=== PATIENT | female | born 1940 | race Caucasian/White ===

== ENCOUNTER 2017-02-06 07:28 | Outpatient (CLI) | payer MEDICARE, OTHER ==
[2017-02-06 08:20] LABS: ALBUMIN/GLOBULIN RATIO 1.2 (1.0-2.2); BILIRUBIN,TOTAL 0.4 mg/dL (0.2-1.0); BUN - BLOOD UREA NITROGEN 22 mg/dL (6-20); CALCIUM 9.1 mg/dL (8.5-10.3); CARBON DIOXIDE - CO2 22 mmol/L (21-32); CHLORIDE 109 mmol/L (101-111); CHOL/HDL RATIO 4.5 (<4.4); CHOLESTEROL 267 mg/dL; CREATININE 0.9 mg/dL (0.4-1.0); GFR - MDRD 61 (>89); GLUCOSE 104 mg/dL (70-100); HDL CHOLESTEROL 59 mg/dL; LDL/HDL RATIO 2.8 (<4.4); POTASSIUM 4.1 mmol/L (3.5-5.0); SODIUM 139 mmol/L (135-145); TOTAL PROTEIN 6.5 g/dL (6.7-8.2); TRIGLYCERIDES 199 mg/dL; VLDL CHOLESTEROL 40 mg/dL
== END 2017-02-06 07:29 | disposition home or self-care (01) ==
LOC: LAB 07:28
PROVIDERS: ATTEND Physician Assistant Medical
DX: E78.2 Mixed hyperlipidemia (principal); M81.0 Age-related osteoporosis without current pathological fracture; Z79.899 Other long term (current) drug therapy; R73.9 Hyperglycemia, unspecified
CPT/HCPCS: 36415; 80053; 80061; 82306; 84443

== ENCOUNTER 2017-02-14 10:50 | Outpatient (CLI) | payer MEDICARE, OTHER ==
[2017-02-14 11:15] LABS: BASOPHILS % (AUTO) 0.3 %; EOSINOPHILS % (AUTO) 0.2 %; HCT - HEMATOCRIT 37.8 % (37.0-47.0); HGB - HEMOGLOBIN 12.5 g/dL (12.0-16.0); LYMPHOCYTES # (AUTO) 1.1 10^3/uL (1.5-3.5); LYMPHOCYTES % (AUTO) 7.4 %; MEAN CORPUSCULAR HEMOGLOBIN 28.5 pg (27.0-31.0); MEAN CORPUSCULAR HGB CONC 33.1 g/dL (32.0-36.0); MEAN CORPUSCULAR VOLUME 86.4 fL (81.0-99.0); MEAN PLATELET VOLUME 7.7 fL (7.9-10.8); MONOCYTES # (AUTO) 0.8 10^3/uL (0.0-1.0); MONOCYTES % (AUTO) 5.6 %; NEUTROPHILS # (AUTO) 12.6 10^3/uL (1.5-6.6); NEUTROPHILS % (AUTO) 86.5 %; RED BLOOD COUNT 4.38 10^6/uL (4.20-5.40); RED CELL DISTRIBUTION WIDTH 13.6 % (12.0-15.0); UNCORRECTED WHITE BLOOD COUNT 14.6 x10^3/uL; WHITE BLOOD COUNT 14.6 x10^3/uL (4.8-10.8)
[2017-02-14 11:35] LABS: ALBUMIN/GLOBULIN RATIO 1.2 (1.0-2.2); BILIRUBIN,TOTAL 0.9 mg/dL (0.2-1.0); CALCIUM 9.2 mg/dL (8.5-10.3); CREATININE 0.8 mg/dL (0.4-1.0); POTASSIUM 4.1 mmol/L (3.5-5.0); TOTAL PROTEIN 6.9 g/dL (6.7-8.2)
== END 2017-02-14 10:51 | disposition home or self-care (01) ==
LOC: LAB 10:50
PROVIDERS: ATTEND Physician Assistant Medical
DX: R10.84 Generalized abdominal pain (principal); R19.7 Diarrhea, unspecified; R50.9 Fever, unspecified
CPT/HCPCS: 36415; 80053; 82150; 83690; 85025; 85651; 86140

== ENCOUNTER 2017-02-14 12:15 | Outpatient (CLI) | payer MEDICARE, OTHER ==
[2017-02-14] MEDS ORDERED: IOPAMIDOL-300 50 ML VIAL PO ONE (13:55)
[2017-02-14] MEDS ORDERED: IOPAMIDOL-300 100 ML VIAL IVP ONE (13:55)
--- NOTE | 2017-02-14 15:51 | CT Report ---
CT OF THE ABDOMEN AND PELVIS WITH CONTRAST: 02/14/2017 CLINICAL INDICATION: Pain, fever. TECHNIQUE: Axial CT images of the abdomen and pelvis were obtained with 100 mL of Isovue-300 intraven ously as well as oral contrast. COMPARISON: 05/05/2015. FINDINGS: Limited evaluation of the lung bases demonstrates mild atelectasis. ABDOMEN: The liver demonstrates fatty infiltration. The previously noted prominence of the pancreatic duct has resolved. The kidneys, spleen, and adrenal glands appear unremarkable. The patient is statu s post cholecystectomy. There is wall thickening and inflammation involving the distal transverse col on, compatible with colitis. No small bowel dilatation, free gas, or free fluid is present. No abdomi nal adenopathy is seen. PELVIS: Sigmoid diverticulosis is present, without CT evidence of diverticulitis. No pelvic adenopath y or free fluid is present. The osseous structures demonstrate degenerative changes. IMPRESSION: COLITIS OF THE DISTAL TRANSVERSE COLON, WITHOUT EVIDENCE OF PERFORATION. Results called to Jane Webb PA-C, on 02/14/2017 at [address]15 hours. In accordance with CT protocol optimization, one or more of the following dose reduction techniques w ere utilized for this exam: automated exposure control, adjustment of mA and/or KV based on patient size, or use of iterative reconstructive technique. JOB #: [id number] EXT JOB #:[id number]
== END 2017-02-14 12:16 | disposition home or self-care (01) ==
LOC: DI 12:15
PROVIDERS: ATTEND Physician Assistant Medical
DX: K52.9 Noninfective gastroenteritis and colitis, unspecified (principal)
CPT/HCPCS: 74177; Q9967; 36415; 80053; 82150; 83690; 85025; 85651; 86140

== ENCOUNTER 2017-02-18 10:15 | Outpatient (CLI) | payer MEDICARE, OTHER ==
[2017-02-18 12:06] LABS: THYROID STIMULATING HORMONE 3.97 uIU/mL (0.34-5.60)
== END 2017-02-18 10:16 | disposition home or self-care (01) ==
LOC: LAB 10:15
PROVIDERS: ATTEND Physician Assistant Medical
DX: R94.6 Abnormal results of thyroid function studies (principal)
CPT/HCPCS: 36415; 84439; 84443

== ENCOUNTER 2017-02-19 04:15 | Outpatient (CLI) | payer MEDICARE, OTHER | END 2017-02-19 04:16 | disposition home or self-care (01) | LOC: LAB.R 04:15 | PROVIDERS: ATTEND Physician Assistant Medical | DX: R30.0 Dysuria (principal); R82.5 Elevated urine levels of drugs, medicaments and biological substances; N39.0 Urinary tract infection, site not specified | CPT/HCPCS: 87086 ==

== ENCOUNTER 2017-05-17 09:32 | Day surgery (SDC) | payer MEDICARE, OTHER ==
[2017-05-17] MEDS ORDERED: LACTATED RINGERS 1,000 ML IV ONE (09:53)
[2017-05-17] MEDS ORDERED: fentaNYL 100 MCG/2 ML VIAL IVP ONE (12:05)
[2017-05-17] MEDS ORDERED: GLUCAGON 1 MG/ML VIAL IM ONE (12:05)
[2017-05-17] MEDS ORDERED: MIDAZOLAM 2 MG/2 ML VIAL IVP ONE (12:05)
[2017-05-17 12:30] VITALS: BP 119/64
== END 2017-05-17 09:33 | disposition home or self-care (01) ==
LOC: SDS 09:32
PROVIDERS: ATTEND Surgery
PROC: 0DBE8ZX Excision of Large Intestine, Via Natural or Artificial Opening Endoscopic, Diagnostic (ICD-10-PCS; principal; 2017-05-17 10:30)
DX: K52.9 Noninfective gastroenteritis and colitis, unspecified (principal); R19.4 Change in bowel habit
CPT/HCPCS: 45380; 88305; J7120

== ENCOUNTER 2018-02-10 09:12 | Outpatient (CLI) | payer MEDICARE, OTHER ==
[2018-02-10 09:39] LABS: BASOPHILS # (AUTO) 0.1 10^3/uL (0.0-0.1); EOSINOPHILS # (AUTO) 0.1 10^3/uL (0.0-0.7); EOSINOPHILS % (AUTO) 1.3 %; HGB - HEMOGLOBIN 13.3 g/dL (12.0-16.0); LYMPHOCYTES # (AUTO) 1.3 10^3/uL (1.5-3.5); LYMPHOCYTES % (AUTO) 20.3 %; MEAN CORPUSCULAR HEMOGLOBIN 29.1 pg (27.0-31.0); MEAN CORPUSCULAR HGB CONC 32.7 g/dL (32.0-36.0); MEAN CORPUSCULAR VOLUME 89.1 fL (81.0-99.0); MEAN PLATELET VOLUME 7.9 fL (7.9-10.8); MONOCYTES # (AUTO) 0.6 10^3/uL (0.0-1.0); MONOCYTES % (AUTO) 8.7 %; NEUTROPHILS # (AUTO) 4.5 10^3/uL (1.5-6.6); NEUTROPHILS % (AUTO) 68.7 %; PLT - PLATELET COUNT 241 10^3/uL (130-450); RED BLOOD COUNT 4.58 10^6/uL (4.20-5.40); RED CELL DISTRIBUTION WIDTH 13.6 % (12.0-15.0); WHITE BLOOD COUNT 6.5 x10^3/uL (4.8-10.8)
[2018-02-10 09:56] LABS: ALBUMIN 3.6 g/dL (3.2-5.5); ALBUMIN/GLOBULIN RATIO 1.1 (1.0-2.2); ALKALINE PHOSPHATASE 68 IU/L (42-121); ALT ALANINE AMINOTRANSFERASE 20 IU/L (10-60); AST ASPARTATE AMINOTRANSFERASE 22 IU/L (10-42); BILIRUBIN,TOTAL 0.7 mg/dL (0.2-1.0); BUN - BLOOD UREA NITROGEN 20 mg/dL (6-20); CALCIUM 9.2 mg/dL (8.5-10.3); CARBON DIOXIDE - CO2 26 mmol/L (21-32); CHLORIDE 105 mmol/L (101-111); CHOL/HDL RATIO 4.1 (<4.4); CHOLESTEROL 274 mg/dL; CREATININE 0.8 mg/dL (0.4-1.0); GFR - MDRD 70 (>89); GLUCOSE 101 mg/dL (70-100); HDL CHOLESTEROL 67 mg/dL; LDL CHOLESTEROL,CALCULATED 170 mg/dL; LDL/HDL RATIO 2.5 (<4.4); SODIUM 139 mmol/L (135-145); TOTAL PROTEIN 6.9 g/dL (6.7-8.2); VLDL CHOLESTEROL 37 mg/dL
[2018-02-10 10:20] LABS: HB2 TOTAL 14.8 g/dL; HEMOGLOBIN A1C 0.63 g/dL
== END 2018-02-10 09:13 | disposition home or self-care (01) ==
LOC: LAB 09:12
PROVIDERS: ATTEND Physician Assistant Medical
DX: M81.0 Age-related osteoporosis without current pathological fracture (principal); Z79.899 Other long term (current) drug therapy; R73.9 Hyperglycemia, unspecified; E78.2 Mixed hyperlipidemia; R94.6 Abnormal results of thyroid function studies
CPT/HCPCS: 36415; 80053; 80061; 82306; 83036; 83721; 84443; 85025

== ENCOUNTER 2018-02-19 13:20 | Outpatient (CLI) | payer MEDICARE, OTHER ==
[2018-02-19 16:56] LABS: BILIRUBIN,URINE NEGATIVE (NEGATIVE); GLUCOSE, URINE (UA) NEGATIVE (NEGATIVE); KETONES,URINE (UA) NEGATIVE (NEGATIVE); LEUKOCYTE ESTERASE, URINE NEGATIVE (NEGATIVE); NITRITE,URINE NEGATIVE (NEGATIVE); OCCULT BLOOD,URINE TRACE-LYSE (NEGATIVE); PROTEIN,URINE NEGATIVE (NEGATIVE); UROBILINOGEN,URINE 0.2 (NORMAL) E.U./dL (NORMAL)
[2018-02-19 17:35] LABS: CLARITY,URINE CLEAR (CLEAR)
== END 2018-02-19 13:21 | disposition home or self-care (01) ==
LOC: LAB.R 13:20
PROVIDERS: ATTEND Physician Assistant Medical
DX: R31.9 Hematuria, unspecified (principal)
CPT/HCPCS: 81001; 81003; 87086

== ENCOUNTER 2018-02-26 15:17 | Outpatient (CLI) | payer MEDICARE, OTHER ==
--- NOTE | 2018-03-06 10:32 | DEXA Report ---
Procedure Date: 02/26/2018 Accession Number: [id number] / [id number] Procedure: DEX - Dexa Spine and/or Hip CPT Code: FULL RESULT: EXAM: Dexa Spine and/or Hip DATE: 02/26/2018 3:55 PM CLINICAL HISTORY: MEDICATION USE, OSTEOPOROSIS TECHNIQUE: Dual energy x-ray absorptiometry (DXA) was performed on a Resource Interactive System. Regions measured are the AP Spine, femoral neck, and if needed forearm. COMPARISON: 03/12/2016 In accordance with the International Society for Clinical Densitometry (ISCD) guidelines, data from previous exams may be reanalyzed using current recommendations and techniques. This is done to allow a more accurate basis for comparison with the current study. FINDINGS: The data for the lumbar spine is as follows: BMD (g/cm/cm) T-SCORE Z-SCORE REGION L1 0.928 -1.7 -0.2 L2 0.843 -3.0 -1.5 L3 0.877 -2.7 -1.2 L4 0.951 -2.1 -0.6 TOTAL 0.902 -2.3 -0.9 NOTE: All evaluable vertebrae are used for classification The data for the hip is as follows: BMD (g/cm/cm) T-SCORE Z-SCORE REGION Neck 0.874 -1.2 0.6 TOTAL 0.846 -1.3 0.3 NOTE: The femoral neck or total proximal femur, whichever is lowest, is used for classification. DXA RESULTS SUMMARY: Spine SCAN DATE AGE BMD BMD CHANGE BMD CHANGE VS BASELINE PREVIOUS [age][birth year][age] 0.902 -0.031* -3.3* 03/12/2016 [age] 0[age]933 -- -- * Denotes significant change at the 95% confidence level. Denotes dissimilar scan types or analysis methods. DXA RESULTS SUMMARY: Hip SCAN DATE [age]GE BMD BMD CHANGE BMD CHANGE VS BASELINE PREVIOUS 02[age]26/2018 [age] 0.846 0.005 0.6 03/12/2016 75.5 0.841 -- -- * Denotes significant change at the 95% confidence level. Denotes dissimilar scan types or analysis methods. IMPRESSION: THE WHO CLASSIFICATION BASED ON THE INTERNATIONAL REFERENCE STANDARD IS OSTEOPENIA. THE FRACTURE RISK IS INCREASED There has been statistically significant interval decrease in bone mineral density of the lumbar spine from 03/12/2016. No statistically significant interval change in bone mineral density of the left hip in the interval. RECOMMENDATION: Patients with diagnosis of osteoporosis or osteopenia should have regular bone mineral density assessment. For those eligible for Medicare, routine testing is allowed once every 2 years. Testing frequency can be increased for patients who have rapidly progressing disease or for those who are receiving medical therapy to restore bone mass. COMMENT: World Health Organization (WHO) definitions for osteoporosis and osteopenia: NORMAL BMD: T-score at -1.0 or higher, fracture risk is low OSTEOPENIA BMD: T-score between -1.0 and -2.5, fracture risk is increased. OSTEOPOROSIS BMD: T-score at -2.5 or lower, fracture risk is high. National Osteoporosis Foundation recommends: 1. Obtain adequate dietary calcium (at least 1200 mg per day) and vitamin D (400-800 international units per day). 2. Participate, as appropriate, in regular weightbearing and muscle-strengthening exercise. 3. Avoid tobacco use and reduce alcohol and caffeine intake. 4. For more detailed information see the website at www.NOF.org.
== END 2018-02-26 15:18 | disposition home or self-care (01) ==
LOC: DI 15:17
PROVIDERS: ATTEND Physician Assistant Medical
DX: M85.89 Other specified disorders of bone density and structure, multiple sites (principal); Z79.899 Other long term (current) drug therapy
CPT/HCPCS: 77080

== ENCOUNTER 2018-02-26 15:19 | Outpatient (CLI) | payer MEDICARE, OTHER ==
--- NOTE | 2018-02-27 09:53 | Mammography Report ---
Procedure Date: 02/26/2018 Accession Number: [id number] / [id number] Procedure: ANA LUISA - Screening Mammo Dig Bilat CPT Code: FULL RESULT: EXAM: Screening Mammo Dig Bilat DATE: 02/26/2018 3:57 PM CLINICAL HISTORY: 77-year-old with family history of breast cancer, history of benign right breast biopsy, nulliparous patient for screening TECHNIQUE: Bilateral CC and MLO views were obtained. COMPARISON: 03/12/2016, 04/13/2014, 04/08/2013 FINDINGS: The breasts demonstrate heterogeneously dense fibroglandular parenchyma bilaterally. Postbiopsy changes in the right breast are stable. Coarse and punctate, typically benign calcifications are present. No suspicious masses, clustered microcalcifications, or regions of architectural distortion are identified. IMPRESSION: Benign findings RECOMMENDATION: Routine annual screening unless otherwise clinically indicated. BIRADS CATEGORY 2: Benign findings STANDARD QUALIFYING STATEMENTS: 1. This examination was reviewed with the aid of Computer-Aided Detection (CAD). 2. A negative or benign imaging report should not delay biopsy if clinically suspicious findings are present. Consider surgical consultation if warrented. More than 5% of cancers are not identified by imaging. 3. Dense breasts may obscure an underlying neoplasm.
== END 2018-02-26 15:20 | disposition home or self-care (01) ==
LOC: DI 15:19
PROVIDERS: ATTEND Physician Assistant Medical
DX: Z12.31 Encounter for screening mammogram for malignant neoplasm of breast (principal); Z80.3 Family history of malignant neoplasm of breast
CPT/HCPCS: 77067

== ENCOUNTER 2018-08-30 10:05 | Emergency (ER) | payer MEDICARE, OTHER ==
[2018-08-30] MEDS ORDERED: PROPARACAINE 0.5% OPHTH DROPS 15 ML LEFTEYE STA (10:40)
--- NOTE | 2018-08-30 10:43 | ED Physician Documentation ---
PD HPI OPHTHO - Stated complaint Stated Complaint: EYE REDNESS - Chief complaint Chief Complaint: Heent - History obtained from History obtained from: Patient - History of Present Illness Timing - onset: Yesterday Timing - details: Abrupt onset, Still present Pain level max: 0 Pain level now: 0 Location: Left Associated symptoms: Redness, Swelling. No: Tearing, Discharge, FB sensation, Photophobia, Double vision, Decreased vision, Loss of vision, Headache Contributing factors: Wears glasses. No: Exposed to conjunctivitis, Recent URI, FB, UV light (welding etc), Chemical exposure, acid, Chemical exposure, base, Blunt trauma, Penetrating trauma, Irrigated [employer], Wears contacts, Work related Similar symptoms before: Has not had sx before - Additional information Additional information: 78-year-old female who wears eyeglasses here with complain of left eye redness and swelling of her lower eyelid yesterday. Patient states able to read with her eyeglasses. Patient denies any trauma, injury or exposure to chemicals and environment yesterday. Denies any fever or upper respiratory infection. Denies any new makeup, soap, lotion. Review of Systems Ten Systems: 10 systems reviewed and negative Constitutional: denies: Fever, Chills, Myalgias Eyes: reports: Irritation. 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 HEENT: Tonsil/Adenoidectomy - Present Medications Home Medications: Ambulatory Orders Medication Instructions Recorded Confirmed Aspirin 81 mg PO DAILY 09/05/14 05/16/17 Calcium Carbonate [Calcium] 750 mg PO DAILY 09/05/14 05/16/17 Raloxifene [Evista] 60 mg PO DAILY 09/05/14 05/16/17 Zolpidem [Ambien] 3.3 mg PO DAILY 09/05/14 05/16/17 Cholecalciferol (Vitamin D3) 2,000 units PO DAILY 02/28/16 05/16/17 [Vitamin D3] Polymyxin B/Trimeth Ophth Drop 1 drops EACHEYE Q3H 7 Days #1 08/30/18 [Polytrim Ophth Drops] bottle - Allergies Allergies/Adverse Reactions: Allergies Allergy/AdvReac Type Severity Reaction Status Date / Time erythromycin base Allergy Anaphylaxis Verified 09/05/14 18:18 Penicillins Allergy Unknown Verified 09/05/14 18:16 promethazine HCl * Allergy Anxiety Verified 09/05/14 18:18 [From Phenergan] venom-honey bee Allergy Anaphylaxis Verified 02/28/16 12:32 [bee venom (honey bee)] - Social History Does the pt smoke?: No Smoking Status: Never smoker Does the pt drink ETOH?: No Does the pt have substance abuse?: Yes - Immunizations Immunizations are current?: Yes PD ED PE NORMAL - Vitals Vital signs reviewed: Yes - General General: Alert and oriented X 3, No acute distress, Well developed/nourished - HEENT HEENT: Atraumatic, PERRL, EOMI, Ears normal, Moist mucous membranes, Pharynx be nign, Other (Left eye with mild erythema of the conjunctiva. Left lower eyelid with edema.Funduscopic exam no papilledema no cloudiness nor redness) - Neck Neck: Supple, no meningeal sign - Cardiac Cardiac: RRR, No murmur - Respiratory Respiratory: Clear bilaterally - Abdomen Abdomen: Normal bowel sounds, Soft, Non tender, Non distended - Derm Derm: Normal color, Warm and dry - Extremities Extremities: No deformity - Neuro Neuro: Alert and oriented X 3, No motor deficit, No sensory deficit, Normal speech - Psych Psych: Normal mood, Normal affect Results - Vitals Vitals: Vital Signs - 24 hr 08/30/18 10:14 Temperature 36.6 C Heart Rate 88 Respiratory 16 Rate Blood Pressure 122/74 O2 Saturation 99 Oxygen O2 Source Room air PD MEDICAL DECISION MAKING - ED course Complexity details: re-evaluated patient, considered differential (Conjunctivitis, corneal abrasion), d/w patient ED course: 1110 patient stated the only thing that was different that she did yesterday was she was wearing her readers for reading yesterday when she started feeling the left eye discomfort, redness and swelling. Procedure: Applied a drop of proparacaine on the left eye. Fluorescein test done. Corneal abrasion noted at 3:00. Patient tolerated procedure. 1129 patient showed me her list of allergies which is erythromycin. We will discharged on eyedrops. Patient will follow up with her eye doctor on Saturday as it is a holiday weekend. If worse she will return to the emergency room. Departure - Departure Disposition: Home, Self Care Clinical Impression: Conjunctivitis Qualifiers: Conjunctivitis type: acute Acute conjunctivitis type: unspecified Laterality: left Qualified Code(s): H10.32 - Unspecified acute conjunctivitis, left eye Corneal abrasion, left Qualifiers: Encounter type: initial encounter Qualified Code(s): S05.02XA - Injury of conjunctiva and corneal abrasion without foreign body, left eye, initial encounter Condition: Stable Instructions: ED Abrasion Corneal Ch, ED Conjunctivitis Nonspecific Prescriptions: Polymyxin B/Trimeth Ophth Drop [Polytrim Ophth Drops] 1 drops EACHEYE Q3H 7 Days #1 bottle Comments: Use the Polytrim eyedrop antibiotic on your left eye as prescribed. Call your eye doctor as soon as possible for appointment this week. If worse return to the emergency room.
[2018-08-30 11:31] VITALS: BP 148/87
== END 2018-08-30 11:41 | disposition home or self-care (01) ==
LOC: ED 10:05
DX: H10.32 Unspecified acute conjunctivitis, left eye (principal); S05.02XA Injury of conjunctiva and corneal abrasion without foreign body, left eye, initial encounter; X58.XXXA Exposure to other specified factors, initial encounter; Z79.82 Long term (current) use of aspirin
CPT/HCPCS: 99283; J3490

== ENCOUNTER 2018-09-12 09:14 | Outpatient (CLI) | payer MEDICARE, OTHER ==
[2018-09-12 10:27] LABS: CHOL/HDL RATIO 4.9 (<4.4); CHOLESTEROL 284 mg/dL; HDL CHOLESTEROL 58 mg/dL; LDL CHOLESTEROL,CALCULATED 178 mg/dL; LDL/HDL RATIO 3.1 (<4.4); VLDL CHOLESTEROL 48 mg/dL
== END 2018-09-12 09:15 | disposition home or self-care (01) ==
LOC: LAB 09:14
PROVIDERS: ATTEND Physician Assistant Medical
DX: E78.2 Mixed hyperlipidemia (principal); Z79.899 Other long term (current) drug therapy
CPT/HCPCS: 36415; 80061; 83721

== ENCOUNTER 2018-09-29 11:50 | Inpatient (IN) | payer MEDICARE, OTHER ==
[2018-09-29 12:38] LABS: BASOPHILS # (AUTO) 0.1 10^3/uL (0.0-0.1); BASOPHILS % (AUTO) 1.3 %; EOSINOPHILS % (AUTO) 0.4 %; HGB - HEMOGLOBIN 13.6 g/dL (12.0-16.0); LYMPHOCYTES % (AUTO) 11.6 %; MEAN CORPUSCULAR HEMOGLOBIN 29.2 pg (27.0-31.0); MEAN CORPUSCULAR HGB CONC 33.6 g/dL (32.0-36.0); MEAN CORPUSCULAR VOLUME 86.8 fL (81.0-99.0); MEAN PLATELET VOLUME 8.3 fL (7.9-10.8); MONOCYTES # (AUTO) 0.6 10^3/uL (0.0-1.0); MONOCYTES % (AUTO) 6.8 %; NEUTROPHILS # (AUTO) 7.2 10^3/uL (1.5-6.6); NEUTROPHILS % (AUTO) 79.9 %; PLT - PLATELET COUNT 197 10^3/uL (130-450); RED BLOOD COUNT 4.66 10^6/uL (4.20-5.40); RED CELL DISTRIBUTION WIDTH 14.5 % (12.0-15.0)
--- NOTE | 2018-09-29 12:54 | ED Physician Documentation ---
PD HPI DYSPNEA - Stated complaint Stated Complaint: DIFFICULTY BREATHING - Chief complaint Chief Complaint: Resp - History obtained from History obtained from: Patient - History of Present Illness Timing - onset: How many days ago (2) Timing - duration: Days (2) Timing - details: Abrupt onset, Still present Inciting event(s): Other (had finger surgery 2 weeks ago, without sedentary state and no infection.). No: URI, Immobilization/travel Worsened by: Exertion (just walking to bathroom and back.) Associated symptoms: No: Fever, Cough, Hemoptysis, Wheezing, Chest pain / discomfort, Palpitations, Bilateral edema Similar symptoms before: Diagnosis (PEs after a surgery 25 years ago. No recent problems.) Recently seen: Surgery (finger cyst removed 2 weeks ago) Review of Systems Constitutional: denies: Fever, Chills Nose: denies: Rhinorrhea / runny nose, Congestion Throat: denies: Sore throat Respiratory: denies: Cough GI: denies: Nausea, Vomiting, Diarrhea Skin: denies: Rash, Lesions Neurologic: reports: Generalized weakness, Near syncope. 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 HEENT: Tonsil/Adenoidectomy - Present Medications Home Medications: Ambulatory Orders Medication Instructions Recorded Confirmed Aspirin 81 mg PO DAILY 09/05/14 09/29/18 Zolpidem [Ambien] 5 mg PO QPM PRN 09/05/14 09/29/18 Cholecalciferol (Vitamin D3) 5,000 units PO DAILY 02/28/16 09/29/18 [Vitamin D3] Calcium - Elemental 1,000 mg PO DAILY 09/29/18 09/29/18 Raloxifene HCl 60 mg PO DAILY 09/29/18 09/29/18 - Allergies Allergies/Adverse Reactions: Allergies Allergy/AdvReac Type Severity Reaction Status Date / Time erythromycin base Allergy Anaphylaxis Verified 09/29/18 15:29 Penicillins Allergy Unknown Verified 09/29/18 16:07 promethazine HCl * Allergy Anxiety Verified 09/29/18 16:07 [From Phenergan] venom-honey bee Allergy Anaphylaxis Verified 09/29/18 15:29 [bee venom (honey bee)] - Social History Does the pt smoke?: No Smoking Status: Never smoker Does the pt drink ETOH?: No Does the pt have substance abuse?: Yes - Immunizations Immunizations are current?: Yes PD ED PE NORMAL - Vitals Vital signs reviewed: Yes - General General: Alert and oriented X 3, No acute distress, Well developed/nourished - HEENT HEENT: Pharynx benign - Neck Neck: Supple, no meningeal sign, No adenopathy - Cardiac Cardiac: RRR, No murmur - Respiratory Respiratory: Clear bilaterally - Abdomen Abdomen: Normal bowel sounds, Soft, Non tender - Back Back: No CVA TTP - Derm Derm: Normal color, Warm and dry - Extremities Extremities: No tenderness to palpate, Normal ROM s pain, No edema, No calf tenderness / cord - Neuro Neuro: Alert and oriented X 3, No motor deficit, Normal speech Results - Vitals Vitals: Vital Signs - 24 hr 09/29/18 09/29/18 09/29/18 11:52 12:09 12:30 Temperature 36.1 C L Heart Rate 104 H 100 99 Respiratory 26 H 12 22 Rate Blood Pressure 150/91 H 147/87 H 128/70 O2 Saturation 95 94 94 09/29/18 09/29/18 09/29/18 13:00 13:24 13:30 Temperature Heart Rate 98 95 95 Respiratory 16 15 16 Rate Blood Pressure 144/88 H 130/77 O2 Saturation 92 99 09/29/18 09/29/18 09/29/18 14:08 15:11 15:26 Temperature Heart Rate 95 86 101 H Respiratory 20 18 22 Rate Blood Pressure 156/73 H 154/87 H 161/79 H O2 Saturation 95 92 92 Oxygen O2 Source Room air - EKG (time done) 12:03 Rate: Rate (enter#) (102) Rhythm: Sinus tachycardia Drake: Normal Intervals: Normal OK QRS: Normal Ischemia: Normal ST segments. No: ST elevation c/w ischemia, ST depression Computer interpretation: Agree with computer - Labs Labs: Laboratory Tests 09/29/18 09/29/18 09/29/18 12:24 12:24 12:24 WBC 9.0 RBC 4.66 Hgb 13.6 Hct 40.5 MCV 86.8 MCH 29.2 MCHC 33.6 RDW 14.5 Plt Count 197 MPV 8.3 Neut # (Auto) 7.2 H Lymph # (Auto) 1.0 L [place] # (Auto) 0.6 Eos # (Auto) 0.0 Baso # (Auto) 0.1 Absolute Nucleated RBC 0.00 Nucleated RBC % 0.0 D-Dimer Sodium 137 Potassium 3.9 Chloride 107 Carbon Dioxide 22 Anion Gap 8.0 BUN 23 H Creatinine 1.1 H Estimated GFR (MDRD) 48 L Glucose 155 H Calcium 8.9 Magnesium Total Bilirubin 0.6 AST 20 ALT 20 Alkaline Phosphatase 66 Troponin I 0.08 B-Natriuretic Peptide Total Protein 6.7 Albumin 3.6 Globulin 3.1 Albumin/Globulin Ratio 1.2 Lipase 36 09/29/18 09/29/18 09/29/18 13:25 13:25 13:25 WBC RBC Hgb Hct MCV MCH MCHC RDW Plt Count MPV Neut # (Auto) Lymph # (Auto) [place] # (Auto) Eos # (Auto) Baso # (Auto) Absolute Nucleated RBC Nucleated RBC % D-Dimer 867.1 H Sodium Potassium Chloride Carbon Dioxide Anion Gap BUN Creatinine Estimated GFR (MDRD) Glucose Calcium Magnesium 2.3 Total Bilirubin AST ALT Alkaline Phosphatase Troponin I B-Natriuretic Peptide 59 Total Protein Albumin Globulin Albumin/Globulin Ratio Lipase - Rads (name of study) chest xray Radiology: Prelim report reviewed (Negative), EMP read contemporaneously, See rad report CT A chest Radiology: Prelim report reviewed (Emboli bilaterally. The radiologist makes note of a strain pattern with RV enlargement on the study. He does not say any saddle emboli.) PD MEDICAL DECISION MAKING - ED course Complexity details: reviewed results, re-evaluated patient, considered differential (Oh obvious predisposing risk factor. Presume she will need some hypercoagulability blood tests. Could do ultrasounds of the lower extremities. She is having marked dyspnea with light slight exertion. Her BNP is negative. However she probably needs an echocardiogram and further workup To assess for the degree of heart strain. Her BNP is negative but has fairly asymptomatic dyspnea and the CT report makes note of a heart strain with RV enlargement..), d/w patient Departure - Departure Disposition: [facility] DC/Xfer Clinical Impression: Acute dyspnea Pulmonary emboli Qualifiers: Pulmonary embolism type: unspecified Chronicity: acute Acute cor pulmonale presence: without acute cor pulmonale Qualified Code(s): I26.99 - Other pulmonary embolism without acute cor pulmonale Condition: Stable Record reviewed to determine appropriate education?: Yes Discharge Date/Time: 09/29/18 16:30
[2018-09-29 13:06] LABS: ALBUMIN 3.6 g/dL (3.2-5.5); ALBUMIN/GLOBULIN RATIO 1.2 (1.0-2.2); BILIRUBIN,TOTAL 0.6 mg/dL (0.2-1.0); CALCIUM 8.9 mg/dL (8.5-10.3); CREATININE 1.1 mg/dL (0.4-1.0); TOTAL PROTEIN 6.7 g/dL (6.7-8.2)
--- NOTE | 2018-09-29 13:10 | XRAY Report ---
Reason: SOA Procedure Date: 09/29/2018 Accession Number: [id number] / [id number] Procedure: XR - Chest 1 View X-Ray CPT Code: 56323 FULL RESULT: EXAM: CHEST RADIOGRAPHY EXAM DATE: 09/29/2018 12:37 PM. CLINICAL HISTORY: Shortness of breath. COMPARISON: XR CHEST PA AND LAT 10/27/2007 10:35 AM. TECHNIQUE: 1 view. FINDINGS: Lungs/Pleura: No focal opacities evident. No pleural effusion. No pneumothorax. Mediastinum: Within exam limitations, the cardiomediastinal contour is normal. Other: Surgical clips overlie right lower chest, compatible with prior breast surgery. IMPRESSION: No acute abnormality demonstrated. RADIA
[2018-09-29] MEDS ORDERED: ALBUTEROL NEB 2.5 MG/3 ML INH STA (13:15)
[2018-09-29] MEDS ORDERED: IOVERSOL 320 100 ML VIAL IVP ONE ×2 (14:32→15:05)
[2018-09-29] MEDS ORDERED: ENOXAPARIN 80 MG/0.8 ML SYRINGE SUBQ STA (15:17)
--- NOTE | 2018-09-29 15:25 | CT Report ---
Reason: dyspnea and elevated d-dimer Procedure Date: 09/29/2018 Accession Number: [id number] / [id number] Procedure: CT - Chest Angio (PE) CPT Code: FULL RESULT: EXAM: CT ANGIOGRAM CHEST EXAM DATE: 09/29/2018 03:02 PM. CLINICAL HISTORY: Dyspnea and elevated d-dimer. COMPARISON: None. TECHNIQUE: Routine helical imaging was performed through the chest in the pulmonary arterial phase. IV Contrast: 65 ML OPTIRAY 320. Reconstructions: Coronal 3-D MIP reconstructions.Sagittal and coronal. In accordance with CT protocol optimization, one or more of the following dose reduction techniques were utilized for this exam: automated exposure control, adjustment of mA and/or KV based on patient size, or use of iterative reconstructive technique. FINDINGS: Pulmonary Arteries: Diagnostic quality: Adequate through the segmental arteries. There are bilateral occlusive lobar pulmonary emboli to the right lower and middle lobes as well as the left upper and lower lobes. RV/LV is elevated. There is interventricular septal bowing. There is slight reflux of contrast material towards the hepatic IVC. The pulmonary artery is mildly enlarged, 3.1 cm. Lungs/Pleura: No consolidation, nodules, or edema. No effusions or pneumothorax. Mediastinum: No pericardial effusion or mediastinal lymphadenopathy. Thoracic Aorta: Unremarkable. Upper Abdomen: Unremarkable. Other: None. IMPRESSION: Bilateral lobar pulmonary emboli with evidence of right heart strain. CRITICAL RESULT: The findings were discussed with Dr. Mayfield on 09/29/2018 at 3:20 PM [facility]
[2018-09-29] MEDS ORDERED: MORPHINE 2 MG/ML CARPUJECT IVP PRN (15:50)
[2018-09-29] MEDS ORDERED: ZOLPIDEM 5 MG TABLET PO PRN (15:50)
[2018-09-29] MEDS ORDERED: SODIUM CHLORIDE FLUSH 0.9% 10 ML SYRINGE IVP PRN (15:50)
[2018-09-29] MEDS ORDERED: ONDANSETRON 4 MG/2 ML VIAL IVP PRN (15:50)
[2018-09-29] MEDS ORDERED: ACETAMINOPHEN 325 MG TABLET PO PRN (15:50)
[2018-09-29] MEDS ORDERED: ALBUTEROL NEB 2.5 MG/3 ML INH PRN (15:59)
[2018-09-29] MEDS ORDERED: cloNIDine 0.1 MG TABLET PO PRN (16:00)
--- NOTE | 2018-09-29 16:20 | HISTORY & PHYSICAL EXAMINATION ---
Chief Complaint - Chief Complaint Chief Complaint: shortness of breath History of Present Illness - History of Present Illness HPI Comment/Other: Ms. Tomas is a 78-yrs old female with a PMH significant for HTN, insomnia, hx of PE following surgery, who present ER for complains of dyspnea. pt report she felt dyspnea started two days ago. She report today when she tried to go upstairs, she had to stop in the middle to catch her breath. She denies chest pain, dizziness, fever, chill, cough, headache, any leg calf pain or swelling. She denies any cigarette smoking or COPD history. CTA reveals bilateral lobar pulmonary emboli with evidence of right heart strain. CXR is unremarkable today. Lab test reveal elevated D-Dimer, slight elevated creatinine and BUN. pt is afebrile, mild tachycardia and slight elevated blood pressure. 92% sat on room air, O2 sats drop down to 88% on exertion. As the result of her presentation, pt was admitted in the hospital for further evaluation and treatment. 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 HEENT: reports: Tonsil/Adenoidectomy - Family & Social History Family History Comment/Other: pt is living alone in [facility] Living arrangement: At home Living Situation: Alone - Substance History Use: Uses substance without health or social issues: NONE - POLST Patient has POLST: Yes POLST Status: DNR Meds/Allgy - Home Medications Home Medications: Ambulatory Orders Medication Instructions Recorded Confirmed Aspirin 81 mg PO DAILY 09/05/14 09/29/18 Zolpidem [Ambien] 5 mg PO QPM PRN 09/05/14 09/29/18 Cholecalciferol (Vitamin D3) 5,000 units PO DAILY 02/28/16 09/29/18 [Vitamin D3] Calcium - Elemental 1,000 mg PO DAILY 09/29/18 09/29/18 Raloxifene HCl 60 mg PO DAILY 09/29/18 09/29/18 - Allergies Allergies/Adverse Reactions: Allergies Allergy/AdvReac Type Severity Reaction Status Date / Time erythromycin base Allergy Anaphylaxis Verified 09/29/18 15:29 Penicillins Allergy Unknown Verified 09/29/18 16:07 promethazine HCl * Allergy Anxiety Verified 09/29/18 16:07 [From Phenergan] venom-honey bee Allergy Anaphylaxis Verified 09/29/18 15:29 [bee venom (honey bee)] Review of Systems - Constitutional Constitutional: denies: Fatigue, Fever, Chills, Malaise, Weakness, Poor appetite, Diaphoresis, Night sweats - Eyes Eyes: denies: Pain, Irritation, Amaurosis, Blurred vision, Spots in vision, Field loss, Vision loss, Dipolpia - Ears, Nose & Throat Ears, Nose & Throat: denies: Ear pain, Hearing loss, Hearing aids, Tinnitus, Ve rtigo, Nasal pain, Nasal discharge, Nosebleeds, Nasal obstruction, Nasal congestion, Postnasal drainage, Dentures, Sore throat, Hoarseness - Cardiovascular Cariovascular: reports: Exertional dyspnea, Decr. exercise tolerance. denies: Irregular heart rate, Palpitations, Chest pain, Edema, Lightheadedness, Syncope - Respiratory Respiratory: reports: SOB with exertion. denies: Cough, Sputum production, Wheezing, Snoring, Hemoptysis, Orthopnea, SOB at rest, Apnea, Stridor - Gastrointestinal Gastrointestinal: denies: Abdominal pain, Abdominal distention, Constipation, Diarrhea, Change in bowel habits, Rectal bleeding, Black stools, Bloody stools, Nausea, Vomiting, Bile emesis, Allen blood emesis, Coffee grounds emesis - Genitourinary Genitourinary: denies: Dysuria, Frequency, Urgency, Hematuria, Incontinence, Flank pain, Nocturia, Urethral discharge - Musculoskeletal Musculoskeletal: denies: Muscle pain, Back pain, Muscle aches, Stiffness, Limited range of motion, Muscle weakness, Gout, Joint pain - Integumentary Integumentary: denies: Rash, Pruritis, Lesions, Dryness, Lumps, Acne, Pigment changes, Nail changes - Neurological Neurological: denies: General weakness, Focal weakness, Headache, Dizziness, Numbness, Memory problems, Pre-existing deficit, Abnormal gait, Seizures, Incoordination, Slurred speech - Psychiatric Psychiatric: denies: Depression, Anxiety, Suicidal, Delusions, Hallucinations, Homicidal - Endocrine Endocrine: denies: Polyuria, Polydypsia, Polyphagia, Intolerance to cold - Hematologic/Lymphatic Hematologic/Lymphatic: denies: Anemia, Bruising, Blood clots, Lymphadenopathy, Bleeding tendencies Prior Level of Functionality: pt is independent living alone at her home Exam - Vital Signs Reviewed Vital Signs: Yes Vital Signs: Vital Signs x48h Temp Pulse Resp BP Pulse Ox 09/29/18 16:00 100 17 163/82 H 98 09/29/18 15:26 101 H 22 161/79 H 92 09/29/18 15:11 86 18 154/87 H 92 09/29/18 14:08 95 20 156/73 H 95 09/29/18 13:30 95 16 130/77 99 09/29/18 13:24 95 15 09/29/18 13:00 98 16 144/88 H 92 09/29/18 12:30 99 22 128/70 94 09/29/18 12:09 100 12 147/87 H 94 09/29/18 11:52 36.1 C L 104 H 26 H 150/91 H 95 - Physical Exam General Appearance: positive: No acute distress, Alert. negative: Lethargic Eyes Bilateral: positive: Normal inspection, PERRL, No lid inflammation, Con junctivae nml ENT: positive: ENT inspection nml, Pharynx nml, No signs of dehydration. negative: Purulent nasal drainage, Pharyngeal erythema, Oral lesions Neck: positive: Nml inspection, Thyroid nml, No JVD, Trachea midline. negative: Thyromegaly, Lymphadenopathy (R), Lymphadenopathy (L), Stiff neck, Swelling/bruising, Tracheal deviation Respiratory: positive: Chest non-tender, No respiratory distress, Breath sounds nml. negative: Wheezes, Rales, Rhonchi Cardiovascular: positive: Regular rate & rhythm, No murmur, No gallop, Tachycardia. negative: Irregularly irregular, Extrasystoles, Bradycardia, JVD present, Systolic murmur, Diastolic murmur Peripheral Pulses: positive: 2+ Abdomen: positive: Non-tender, No organomegaly, Nml bowel sounds, No distention. negative: Tenderness, Guarding, Rebound Back: positive: Nml inspection. negative: CVA tenderness (R), CVA tenderness (L) Skin: positive: Color nml, No rash, Warm, Dry. negative: Cyanosis, Diaphoresis, Pallor, Skin rash Extremities: positive: Non-tender, Full ROM, Nml appearance, No pedal edema. negative: Calf tenderness, Joint swelling, Oren's sign/cords Neurologic/Psychiatric: positive: Oriented x3, Motor nml, Sensation nml, Mood/affect nml. negative: Weakness, Sensory loss, Facial droop, Slurred/abnml speech, Depressed mood/affect Sepsis Event Note (H) - Evaluation Current Stage of Sepsis: Ruled out Conclusion/Plan - Problem List (1) Pulmonary emboli Conclusion/Plan: CTA reveals bilateral occlusive lobar pulmonary emboli to the right lower and middle lobes as well s the left upper and lower lobes, and clinically present acute dyspnea, significant pulmonary emboli. Lovenox BID, 1mg/kg tele and vital Qualifiers: Pulmonary embolism type: unspecified Chronicity: acute Acute cor pulmonale presence: without acute cor pulmonale Qualified Code(s): I26.99 - Other pulmonary embolism without acute cor pulmonale (2) Acute dyspnea Conclusion/Plan: pt present acute dyspnea specially on exertion. It appears from pt's bilateral PE treat underline PE with Lovenox albuterol PRN O2 supplement as needed (3) Dehydration Conclusion/Plan: pt present elevated BUN and Creatinine, clinically present dry mouth IVF of NS, precaution fluid overload continue lab and vital monitor (4) HTN (hypertension) Conclusion/Plan: pt has no hx of HTN but pt elevated BP, it appears from her medical distress Clonidine PRN vital monitor (5) Tachycardia Conclusion/Plan: pt has slight elevated HR and ST shown at EKG. It appears from her pulmonary distress, reduced O2 sats closely monitor with tele and vital (6) Do not intubate, cardiopulmonary resuscitation (CPR)-only code status Conclusion/Plan: pt clearly request DNR - Lab Results Fish Bones: 09/29/18 12:24 09/29/18 12:24 Core Measures - Anticipated LOS I expect patient to be DC'd or transferred within 96 hours.: Yes - DVT/VTE - Prophylaxis VTE/DVT Device ordered at admit?: Yes VTE/DVT Prophylaxis med ordered at admit?: Yes
[2018-09-29] MEDS: SODIUM CHLORIDE 0.9% 1,000 ML IV SCH (17:06)
[2018-09-29] MEDS: SODIUM CHLORIDE FLUSH 0.9% 10 ML SYRINGE IVP SCH (17:06)
[2018-09-29] MEDS: FAMOTIDINE 20 MG TABLET PO SCH (20:51)
[2018-09-29] MEDS: ENOXAPARIN 80 MG/0.8 ML SYRINGE SUBQ SCH (20:51)
[2018-09-29] MEDS: cephALEXin 250 MG CAPSULE PO SCH (20:51)
[2018-09-29] MEDS ORDERED: ZOLPIDEM 5 MG TABLET PO SCH (23:45)
[2018-09-30] MEDS: SODIUM CHLORIDE FLUSH 0.9% 10 ML SYRINGE IVP SCH ×3 (01:41→16:39)
[2018-09-30] MEDS: SODIUM CHLORIDE 0.9% 1,000 ML IV SCH (02:22)
[2018-09-30 06:10] LABS: CALCIUM 8.2 mg/dL (8.5-10.3); CREATININE 0.8 mg/dL (0.4-1.0)
[2018-09-30] MEDS: CALCIUM CARB (OYSTER SHELL) 500 MG TABLET PO SCH (08:19)
[2018-09-30] MEDS: cephALEXin 250 MG CAPSULE PO SCH ×2 (08:20→21:04)
[2018-09-30] MEDS: ENOXAPARIN 80 MG/0.8 ML SYRINGE SUBQ SCH (08:20)
[2018-09-30] MEDS: CHOLECALCIFEROL 1,000 UNIT TABLET PO SCH (08:20)
[2018-09-30] MEDS: FAMOTIDINE 20 MG TABLET PO SCH (08:20)
[2018-09-30] MEDS: POLYETHYLENE GLYCOL 3350 17 GM PACKET PO SCH (08:21)
[2018-09-30] MEDS: RALOXIFENE HCL 60 MG PO SCH (08:23)
[2018-09-30] MEDS ORDERED: ZOLPIDEM 5 MG TABLET PO PRN (08:57)
[2018-09-30 10:04] LABS: BASOPHILS % (AUTO) 0.4 %; EOSINOPHILS # (AUTO) 0.1 10^3/uL (0.0-0.7); HGB - HEMOGLOBIN 12.9 g/dL (12.0-16.0); LYMPHOCYTES # (AUTO) 1.2 10^3/uL (1.5-3.5); LYMPHOCYTES % (AUTO) 18.1 %; MEAN CORPUSCULAR HEMOGLOBIN 29.6 pg (27.0-31.0); MEAN CORPUSCULAR HGB CONC 33.9 g/dL (32.0-36.0); MEAN CORPUSCULAR VOLUME 87.4 fL (81.0-99.0); MEAN PLATELET VOLUME 8.2 fL (7.9-10.8); MONOCYTES # (AUTO) 0.6 10^3/uL (0.0-1.0); MONOCYTES % (AUTO) 9.7 %; NEUTROPHILS # (AUTO) 4.7 10^3/uL (1.5-6.6); NEUTROPHILS % (AUTO) 70.8 %; PLT - PLATELET COUNT 191 10^3/uL (130-450); RED BLOOD COUNT 4.37 10^6/uL (4.20-5.40); RED CELL DISTRIBUTION WIDTH 13.8 % (12.0-15.0); WHITE BLOOD COUNT 6.6 x10^3/uL (4.8-10.8)
--- NOTE | 2018-09-30 10:14 | PROVIDER PROGRESS NOTE ---
Subjective - Prog Note Date Prog Note Date: 09/30/18 Prog Note Time: 10:11 - Subjective Pt reports feeling: Improved Subjective: Charissa is tearful on exam as she had just spoke with Dr. Ortiz who is retiring in the near future. She complains of breathlessness, diarrhea and claims to be eating and sleeping well. She denies chest pain, chest pressure, coughing up blood, runny nose, sore throat, a rash, bleeding, nausea, vomiting, constipation, or more difficulty breathing. She was presented with the pros and cons of both Warfarin and Eliquis and is agreeable to seeing if her insurance will cover the Eliquis to avoid numerous blood draws and to ensure she will still be able to take her Raloxifene which would be contraindicated with taking Warfarin. Current Medications - Current Medications Current Medications: Active Medications: Acetaminophen (Tylenol) 650 mg PO Q4HR PRN Albuterol () 2.5 mg INH RTQ4H PRN Apixaban (Eliquis) 10 mg PO BID YAIMA Aspirin (Ecotrin) 81 mg PO DAILY [facility]AIMA Calcium Carbonate/Glycine (Oysco-500) 2,000 mg PO DAILY [facility]AIMA Cephalexin (Keflex) 500 mg PO BID YAIMA Cholecalciferol (Vitamin D3) 5,000 unit PO DAILY [facility] Clonidine HCl (Catapres) 0.1 mg PO BID PRN Diphenoxylate HCl/Atropine (Lomotil) 1 tab PO QID PRN Famotidine (Pepcid) 20 mg PO DAILY [facility]AIM[facility] Morphine Sulfate (Morphine (Carpuject)) 2 mg IVP Q2HR PRN Ondansetron HCl (Zofran Inj) 4 mg IVP Q6HR PRN Patient Own Med ( Raloxifene Hcl [ Evista] 60 Mg) 1 each PO DAILY [facility]AIMA Polyethylene Glycol (Miralax) 17 gm PO DAILY [facility]AIM[facility] Saccharomyces Boulardii (Florastor) 250 mg PO BIDWM YAIMA Zolpidem Tartrate (Ambien) 5 mg PO QPM PRN HOME meds: Aspirin 81 mg PO DAILY 09/05/14 Zolpidem [Ambien] 5 mg PO QPM PRN 09/05/14 Cholecalciferol (Vitamin D3) [Vitamin D3] 5,000 units PO DAILY 02/28/16 Calcium - Elemental 1,000 mg PO DAILY 01/28/19 Raloxifene HCl 60 mg PO DAILY 09/29/18 Objective - Vital Signs/Intake & Output Reviewed Vital Signs: Yes Vital Signs: Vital Signs x48h Temp Pulse Resp BP Pulse Ox 09/30/18 08:21 36.6 C 84 16 131/74 H 97 09/30/18 06:05 36.7 C 84 16 124/73 96 Intake & Output: Intake & Output 09/27/18 09/28/18 09/29/18 09/30/18 23:59 23:59 23:59 23:59 Intake Total 420 1636.667 Balance 420 1636.667 - Objective General Appearance: positive: Alert, Mild distress, Anxious Eyes Bilateral: positive: PERRL Eyes: OU Lid inflammation ENT: positive: Pharynx nml, No signs of dehydration Neck: positive: Thyroid nml, No JVD Respiratory: positive: Chest non-tender, No respiratory distress, Breath sounds nml Cardiovascular: positive: Regular rate & rhythm, No gallop, Systolic murmur, De creased pulse(s) Peripheral Pulses: 1+ Dorsalis pedis (R), 1+ Dorsalis pedis (L), 2+ Radial (R), 2+ Radial (L) Abdomen: positive: Non-tender, Nml bowel sounds Back: positive: Nml inspection Skin: positive: No rash, Warm, Dry Extremities: positive: Non-tender, Full ROM, Nml appearance, No pedal edema Neurologic/Psychiatric: positive: Oriented x3, CN's nml (2-12), Motor nml, Sensation nml Reflexes: Bicep (R): 3+, Bicep (L): 3+ - Lab Results Fish Bones: 09/30/18 09:45 09/30/18 05:50 Other Labs: Lab Results x24hrs 09/30/18 09/30/18 09/30/18 Range/Units 09:45 09:45 05:50 WBC 6.6 (4.8-10.8) x10^3/uL RBC 4.37 (4.20-5.40) 10^6/uL Hgb 12.9 (12.0-16.0) g/dL Hct 38.2 (37.0-47.0) % MCV 87.4 (81.0-99.0) fL MCH 29.6 (27.0-31.0) pg MCHC 33.9 (32.0-36.0) g/dL RDW 13.8 (12.0-15.0) % Plt Count 191 (130-450) 10^3/uL MPV 8.2 (7.9-10.8) fL Neut # (Auto) 4.7 (1.5-6.6) 10^3/uL Lymph # (Auto) 1.2 L (1.5-3.5) 10^3/uL Hutchinson # (Auto) 0.6 (0.0-1.0) 10^3/uL Eos # (Auto) 0.1 (0.0-0.7) 10^3/uL Baso # (Auto) 0.0 (0.0-0.1) 10^3/uL Absolute Nucleated RBC 0.00 x10^3/uL Nucleated RBC % 0.1 /100WBC D-Dimer (200.0-255.0) ng/mL Sodium 143 (135-145) mmol/L Potassium 4.3 (3.5-5.0) mmol/L Chloride 113 H (101-111) mmol/L Carbon Dioxide 23 (21-32) mmol/L Anion Gap 7.0 (6-13) BUN 17 (6-20) mg/dL Creatinine 0.8 (0.4-1.0) mg/dL Estimated GFR (MDRD) 70 L (>89) Glucose 103 H (70-100) mg/dL Calcium 8.2 L (8.5-10.3) mg/dL Magnesium (1.7-2.8) mg/dL Total Bilirubin (0.2-1.0) mg/dL AST (10-42) IU/L ALT (10-60) IU/L Alkaline Phosphatase (42-121) IU/L Troponin I 0.07 (<0.49) ng/mL B-Natriuretic Peptide (5-100) pg/mL Total Protein (6.7-8.2) g/dL Albumin (3.2-5.5) g/dL Globulin (2.1-4.2) g/dL Albumin/Globulin Ratio (1.0-2.2) Lipase (22-51) U/L 01/28/19 01/28/19 01/28/19 Range/Units 18:56 13:25 13:25 WBC (4.8-10.8) x10^3/uL RBC (4.20-5.40) 10^6/uL Hgb (12.0-16.0) g/dL Hct (37.0-47.0) % MCV (81.0-99.0) fL MCH (27.0-31.0) pg MCHC (32.0-36.0) g/dL RDW (12.0-15.0) % Plt Count (130-450) 10^3/uL MPV (7.9-10.8) fL Neut # (Auto) (1.5-6.6) 10^3/uL Lymph # (Auto) (1.5-3.5) 10^3/uL Hutchinson # (Auto) (0.0-1.0) 10^3/uL Eos # (Auto) (0.0-0.7) 10^3/uL Baso # (Auto) (0.0-0.1) 10^3/uL Absolute Nucleated RBC x10^3/uL Nucleated RBC % /100WBC D-Dimer 867.1 H (200.0-255.0) ng/mL Sodium (135-145) mmol/L Potassium (3.5-5.0) mmol/L Chloride (101-111) mmol/L Carbon Dioxide (21-32) mmol/L Anion Gap (6-13) BUN (6-20) mg/dL Creatinine (0.4-1.0) mg/dL Estimated GFR (MDRD) (>89) Glucose (70-100) mg/dL Calcium (8.5-10.3) mg/dL Magnesium 2.3 (1.7-2.8) mg/dL Total Bilirubin (0.2-1.0) mg/dL AST (10-42) IU/L ALT (10-60) IU/L Alkaline Phosphatase (42-121) IU/L Troponin I 0.21 (<0.49) ng/mL B-Natriuretic Peptide (5-100) pg/mL Total Protein (6.7-8.2) g/dL Albumin (3.2-5.5) g/dL Globulin (2.1-4.2) g/dL Albumin/Globulin Ratio (1.0-2.2) Lipase (22-51) U/L 09/29/18 09/29/18 09/29/18 Range/Units 13:25 12:24 12:24 WBC (4.8-10.8) x10^3/uL RBC (4.20-5.40) 10^6/uL Hgb (12.0-16.0) g/dL Hct (37.0-47.0) % MCV (81.0-99.0) fL MCH (27.0-31.0) pg MCHC (32.0-36.0) g/dL RDW (12.0-15.0) % Plt Count (130-450) 10^3/uL MPV (7.9-10.8) fL Neut # (Auto) (1.5-6.6) 10^3/uL Lymph # (Auto) (1.5-3.5) 10^3/uL Hutchinson # (Auto) (0.0-1.0) 10^3/uL Eos # (Auto) (0.0-0.7) 10^3/uL Baso # (Auto) (0.0-0.1) 10^3/uL Absolute Nucleated RBC x10^3/uL Nucleated RBC % /100WBC D-Dimer (200.0-255.0) ng/mL Sodium 137 (135-145) mmol/L Potassium 3.9 (3.5-5.0) mmol/L Chloride 107 (101-111) mmol/L Carbon Dioxide 22 (21-32) mmol/L Anion Gap 8.0 (6-13) BUN 23 H (6-20) mg/dL Creatinine 1.1 H (0.4-1.0) mg/dL Estimated GFR (MDRD) 48 L (>89) Glucose 155 H (70-100) mg/dL Calcium 8.9 (8.5-10.3) mg/dL Magnesium (1.7-2.8) mg/dL Total Bilirubin 0.6 (0.2-1.0) mg/dL AST 20 (10-42) IU/L ALT 20 (10-60) IU/L Alkaline Phosphatase 66 (42-121) IU/L Troponin I 0.08 (<0.49) ng/mL B-Natriuretic Peptide 59 (5-100) pg/mL Total Protein 6.7 (6.7-8.2) g/dL Albumin 3.6 (3.2-5.5) g/dL Globulin 3.1 (2.1-4.2) g/dL Albumin/Globulin Ratio 1.2 (1.0-2.2) Lipase 36 (22-51) U/L 09/29/18 Range/Units 12:24 WBC 9.0 (4.8-10.8) x10^3/uL RBC 4.66 (4.20-5.40) 10^6/uL Hgb 13.6 (12.0-16.0) g/dL Hct 40.5 (37.0-47.0) % MCV 86.8 (81.0-99.0) fL MCH 29.2 (27.0-31.0) pg MCHC 33.6 (32.0-36.0) g/dL RDW 14.5 (12.0-15.0) % Plt Count 197 (130-450) 10^3/uL MPV 8.3 (7.9-10.8) fL Neut # (Auto) 7.2 H (1.5-6.6) 10^3/uL Lymph # (Auto) 1.0 L (1.5-3.5) 10^3/uL Hutchinson # (Auto) 0.6 (0.0-1.0) 10^3/uL Eos # (Auto) 0.0 (0.0-0.7) 10^3/uL Baso # (Auto) 0.1 (0.0-0.1) 10^3/uL Absolute Nucleated RBC 0.00 x10^3/uL Nucleated RBC % 0.0 /100WBC D-Dimer (200.0-255.0) ng/mL Sodium (135-145) mmol/L Potassium (3.5-5.0) mmol/L Chloride (101-111) mmol/L Carbon Dioxide (21-32) mmol/L Anion Gap (6-13) BUN (6-20) mg/dL Creatinine (0.4-1.0) mg/dL Estimated GFR (MDRD) (>89) Glucose (70-100) mg/dL Calcium (8.5-10.3) mg/dL Magnesium (1.7-2.8) mg/dL Total Bilirubin (0.2-1.0) mg/dL AST (10-42) IU/L ALT (10-60) IU/L Alkaline Phosphatase (42-121) IU/L Troponin I (<0.49) ng/mL B-Natriuretic Peptide (5-100) pg/mL Total Protein (6.7-8.2) g/dL Albumin (3.2-5.5) g/dL Globulin (2.1-4.2) g/dL Albumin/Globulin Ratio (1.0-2.2) Lipase (22-51) U/L - Diagnostic Imaging Diagnostic Imaging Results: positive: Final report reviewed Diagnostic Imaging Comments: EXAM: CT ANGIOGRAM CHEST EXAM DATE: 09/29/2018 03:02 PM FINDINGS: Pulmonary Arteries: Diagnostic quality: Adequate through the segmental arteries. There are bilateral occlusive lobar pulmonary emboli to the right lower and middle lobes as well as the left upper and lower lobes. RV/LV is elevated. There is interventricular septal bowing. There is slight reflux of contrast material towards the hepatic IVC. The pulmonary artery is mildly enlarged, 3.1 cm. Lungs/Pleura: No consolidation, nodules, or edema. No effusions or pneumothorax. Mediastinum: No pericardial effusion or mediastinal lymphadenopathy. Thoracic Aorta: Unremarkable. Upper Abdomen: Unremarkable. IMPRESSION: Bilateral lobar pulmonary emboli with evidence of right heart strain. ECHOCARDIOGRAM: Pending today ABX Reporting Has patient been on IV antibiotics over the past 48 hours?: No Sepsis Event Note (H) - Evaluation Current Stage of Sepsis: Ruled out Assessment/Plan - Problem List (1) Pulmonary emboli Impression: Imaging showed a bilateral PE with right heart strain. The patient was first given Lovenox 1mg/1kg (80 mg) SQ, that is now discontinued. According to [facility]- comp, the patient should be started on Apixaban within 6 to 12 hours of the last dose of Lovenox. Nursing is agreeable to provide teaching. Plan: D/C lovenox, start loading dose Eliquis at 5pm. Await echo results. Qualifiers: Pulmonary embolism type: unspecified Chronicity: acute Acute cor pulmonale presence: without acute cor pulmonale Qualified Code(s): I26.99 - Other pulmonary embolism without acute cor pulmonale (2) Acute dyspnea Impression: The patient was tachypnic on admission with an oxygen saturation of 94%, but had a RR of 26. ED reported, "short of air with exertion, having a hard time speaking sentences. History of PE many years ago after a surgery". She continues to be breathless on exam today and is wearing 2L of oxygen per nasal cannula. She will stay in the hospital until this symptom is improved. She does not normally wear oxygen at home. Plan: continue to monitor VSs, continue O2 as needed, encourage incentive spirometer. Consider re-imaging if her condition changes. (3) Requires supplemental oxygen Impression: The patient remains breathless on exertion and while moving in bed. I have prescribed an incentive spirometer. She has tried to go without oxygen, but at times cannot finish a sentence without taking a deep breath. Plan: Continue to monitor, continue telemetry. (4) Recurrent pulmonary embolism Impression: This is the patient's second PE in her life and was on Coumadin for her first one ~ 3 months. Now that she has had 2 episodes, she will need life long anticoagulation. She was started on Lovenox, no changed to Apixaban. Plan: Continue to treat the acute illness. (5) HTN (hypertension) Impression: The patient is not prescribed any medication for high blood pressure at home. She has been running high, a likely consequence of her acute PEs. Plan: Continue to monitor, [facility] if B/Ps remain elevated. Qualifiers: Hypertension type: essential hypertension Qualified Code(s): I10 - Essential (primary) hypertension (6) Tachycardia Impression: The patient remains on telemetry with heart rates 80-100 today. An echocardiogram was ordered, but staff are unavailable today. Plan: continue tele, await echo in the AM. (7) Corneal abrasion, left Impression: The patient has been prescribed Keflex for her recent eye injury, which continues here. Plan: continue Keflex, add probiotic. Qualifiers: Encounter type: initial encounter Qualified Code(s): S05.02XA - Injury of conjunctiva and corneal abrasion without foreign body, left eye, initial encounter (8) Diarrhea Impression: The patient has been prescribed Cipro that began soon before this hospital stay. She likely has diarrhea related to this that has been more troublesome today. Plan: Start florastor, offer lomotil and monitor for worsening or electrolyte imbalances. (9) Osteoarthritis Impression: The patient has taken Raloxifene for at least the past [address] Ortiz had warned her of the risk of blood clots after her last pulmonary emboli, but she continued to take it. This may be considered a provoked PE, caused by this medication. Warfarin is listed as a contraindication to raloxifene and these 2 medications should not be prescribed together. After much discussion, the patient was more in favor of being able to continue her osteoarthritis med and taking Eliquis for the rest of her life. Plan: Continue Raloxifene, start Eliquis this evening.
[2018-09-30] MEDS ORDERED: DIPHENOX/ATROPINE 2.5/0.025 MG TABLET PO PRN (11:29)
[2018-09-30] MEDS: SACCHAROMYCES BOULARDII 250 MG CAPSULE PO SCH ×2 (12:23→16:38)
[2018-09-30] MEDS: APIXABAN 5 MG TABLET PO SCH ×2 (16:38→20:59)
[2018-10-01] MEDS: SODIUM CHLORIDE FLUSH 0.9% 10 ML SYRINGE IVP SCH ×2 (00:15→08:24)
[2018-10-01 05:50] LABS: BASOPHILS # (AUTO) 0.1 10^3/uL (0.0-0.1); EOSINOPHILS # (AUTO) 0.1 10^3/uL (0.0-0.7); EOSINOPHILS % (AUTO) 1.4 %; LYMPHOCYTES # (AUTO) 1.5 10^3/uL (1.5-3.5); LYMPHOCYTES % (AUTO) 22.6 %; MEAN CORPUSCULAR HEMOGLOBIN 29.2 pg (27.0-31.0); MEAN CORPUSCULAR VOLUME 88.4 fL (81.0-99.0); MEAN PLATELET VOLUME 7.7 fL (7.9-10.8); MONOCYTES # (AUTO) 0.8 10^3/uL (0.0-1.0); MONOCYTES % (AUTO) 11.8 %; NEUTROPHILS # (AUTO) 4.1 10^3/uL (1.5-6.6); NEUTROPHILS % (AUTO) 63.2 %; PLT - PLATELET COUNT 175 10^3/uL (130-450); RED BLOOD COUNT 4.11 10^6/uL (4.20-5.40); RED CELL DISTRIBUTION WIDTH 13.6 % (12.0-15.0); WHITE BLOOD COUNT 6.5 x10^3/uL (4.8-10.8)
[2018-10-01 06:00] LABS: CALCIUM 8.5 mg/dL (8.5-10.3); CREATININE 0.7 mg/dL (0.4-1.0)
[2018-10-01] MEDS: APIXABAN 5 MG TABLET PO SCH (08:20)
[2018-10-01] MEDS: CHOLECALCIFEROL 1,000 UNIT TABLET PO SCH (08:20)
[2018-10-01] MEDS: SACCHAROMYCES BOULARDII 250 MG CAPSULE PO SCH (08:21)
[2018-10-01] MEDS: FAMOTIDINE 20 MG TABLET PO SCH (08:21)
[2018-10-01] MEDS: CALCIUM CARB (OYSTER SHELL) 500 MG TABLET PO SCH (08:21)
[2018-10-01] MEDS: cephALEXin 250 MG CAPSULE PO SCH (08:22)
[2018-10-01] MEDS: RALOXIFENE HCL 60 MG PO SCH (08:23)
[2018-10-01] MEDS: POLYETHYLENE GLYCOL 3350 17 GM PACKET PO SCH (08:23)
[2018-10-01] MEDS ORDERED: ASPIRIN EC 81 MG TABLET PO SCH (09:00)
[2018-10-01] MEDS ORDERED: amLODIPine 5 MG TABLET PO SCH (10:00)
--- NOTE | 2018-10-01 10:04 | Discharge Plan ---
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 The most likely culprit of this condition was raloxifene which is a selective estrogen receptor modulator. It has a black box warning listed as increased risk of deep vein thrombosis and pulmonary embolism. For this reason, I have stopped this medication. An echocardiogram was ordered but no completed due to staffing issues, so please follow up with an outpatient echocardiogram in ~3 months which will need to be ordered out patient. The indication is to evaluate right heart strain. Your blood pressures have been elevated for your entire stay, so you should continue Norvasc (amlodipine) at home, which was sent to [facility]. Eliquis was sent to [facility] for a better rinaldi for you. You should take 11 more doses of 10 mg tablets, then 5mg twice daily. October 07 will be the first dose of 5mg. Please see Hanna Valdes within one week. Rest when you are tired, slowly increase your activity. No Smoking: If you smoke, Please STOP! Call for help. Follow-up with: Jane Webb PA-C [Primary Care Provider] -
--- NOTE | 2018-10-01 11:28 | DISCHARGE SUMMARY ---
Discharge Summary Admit Date: 09/29/18 Discharge Date: 10/01/18 Discharging Provider: ALEXIS Francis Primary Care Provider: Hanna Valdes Code Status: Do Not Attempt Resuscitation Condition at Discharge: Good Discharge Disposition: Home, Self Care - DIAGNOSES Admission Diagnoses: Other pulmonary embolism without acute cor pulmonale (I26.99) Dyspnea, unspecified (R06.00) Dehydration (E86.0) Essential (primary) hypertension (I10) Tachycardia, unspecified (R00.0) Discharge Diagnoses with Status of Each Condition: Pulmonary emboli (I26.99) bilateral, ongoing. Patient to continue Apixaban. Acute dyspnea (R06.00) weaned off oxygen, stable. HTN (hypertension) (I10) Previously untreated, started on Norvasc, stable. Sinus tachycardia (R00.0) resolved. Requires supplemental oxygen (Z99.81) resolved. Corneal abrasion (S05.00XA) ongoing, continued on antibiotics, stable. Diarrhea (R19.7) resolved, given probiotics. Osteoarthritis (M19.90) Continue D3 at home, stop Raloxifene. Elevated troponin (R74.8) resolved, no EKG changes, patient asymptomatic. On continuous oral anticoagulation (Z79.01) new on this admission. Patient found that [facility] would be $0 no cost for Eliquis, continued. - HPI History of Present Illness: Miranda Tomas is a 78-yr old female with a past medical history of untreated hypertension, snoring, insomnia, osteoporosis, pulmonary emboli ~20 years- following surgery, and is being treated with Keflex for a left eye infection. She presented to the ED with complaints of dyspnea that began two days ago. She described that when she tried to go upstairs, she had to stop in the middle to catch her breath. On exam, she denied chest pain, dizziness, fever, chills, cough, headaches, or any leg calf pain or swelling. She claimed that she had no cigarette smoking or COPD history. CTA revealed bilateral lobar pulmonary emboli with evidence of right heart strain. Chest x-ray was normal, lab testing revealed an elevated D-Dimer, slight elevated creatinine and BUN. Vital signs show pt is afebrile, mild tachycardia and slight elevated blood pressure. 92% sat on room air, O2 sats drop down to 88% on exertion. As the result of her presentation, pt was admitted in the hospital for further evaluation and treatment. - HOSPITAL COURSE Hospital Course: The patient was found to have bilateral PEs, started on Lovenox and transitioned to Eliquis with a loading dose of 10 mg BID x7 days. She was weaned off oxygen and her hypoxia resolved. She was given teaching materials on blood thinners and she agreed with Eliquis, and was able to overcome the barrier of high cost by reaching out to [facility]. She had a very slight elevation in her cardiac enzyme the resumed to normal. She had no evidence of ischemia on EKG, and she did not have chest pain. An echocardiogram was indicated for her right heart strain, but due to staffing, was not completed. She was instructed to stop her osteoarthritis medication as this is thought to be the most likely culprit of this incident. She was excited to see Hanna Valdes to establish care in the next week, who can continue to manage her blood pressure. She was stable at the time of discharge and required no oxygen. - ALLERGIES Allergies/Adverse Reactions: Allergies Allergy/AdvReac Type Severity Reaction Status Date / Time erythromycin base Allergy Anaphylaxis Verified 09/29/18 15:29 Penicillins Allergy Unknown Verified 09/29/18 16:07 promethazine HCl * Allergy Anxiety Verified 09/29/18 16:07 [From Phenergan] venom-honey bee Allergy Anaphylaxis Verified 09/29/18 15:29 [bee venom (honey bee)] - MEDICATIONS Home Medications: Ambulatory Orders Medication Instructions Recorded Confirmed Aspirin 81 mg PO DAILY 09/05/14 09/29/18 Zolpidem [Ambien] 5 mg PO QPM PRN 09/05/14 09/29/18 Cholecalciferol (Vitamin D3) 5,000 units PO DAILY 02/28/16 09/29/18 [Vitamin D3] Calcium - Elemental 1,000 mg PO DAILY 09/29/18 09/29/18 Apixaban [Eliquis] 5 mg PO BID #60 tab.ds.pk 09/30/18 Acetaminophen [Tylenol] 650 mg PO Q4HR PRN tablet 10/01/18 Amlodipine Besylate [Norvasc] 2.5 mg PO DAILY #30 tablet 10/01/18 Apixaban [Eliquis] 10 mg PO BID #22 tab.ds.pk 10/01/18 Saccharomyces Boulardii [Florastor] 250 mg PO BID #60 capsule 10/01/18 - PHYSICAL EXAM AT DISCHARGE General Appearance: positive: No acute distress, Alert Eyes Bilateral: positive: PERRL, Other (mild redness left eye) ENT: positive: ENT inspection nml, Pharynx nml, No signs of dehydration Neck: positive: Nml inspection, Thyroid nml, No JVD, Trachea midline Respiratory: positive: Chest non-tender, No respiratory distress, Breath sounds nml, Other (mild SOB) Cardiovascular: positive: Regular rate & rhythm, No gallop, Systolic murmur (faint) Peripheral Pulses: positive: 2+ Abdomen: positive: Non-tender, Nml bowel sounds, Other (rounded, soft) Back: positive: Nml inspection Skin: positive: Color nml, No rash, Warm, Dry Extremities: positive: Non-tender, Full ROM, Nml appearance, No pedal edema Neurologic/Psychiatric: positive: Oriented x3, CN's nml (2-12), Motor nml, Sensation nml, Mood/affect nml Reflexes: Bicep (R): 4+, Bicep (L): 4+ - LABS Result Diagrams: 10/01/18 05:41 10/01/18 05:41 - DIAGNOSTIC IMAGING Diagnostic Imaging Results: Final report reviewed Diagnostic Imaging Results Comments: EXAM: CHEST RADIOGRAPHY EXAM DATE: 09/29/2018 12:37 PM IMPRESSION: No acute abnormality demonstrated. EXAM: CT ANGIOGRAM CHEST EXAM DATE: 09/29/2018 03:02 PM. IMPRESSION: Bilateral lobar pulmonary emboli with evidence of right heart strain. 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 The most likely culprit of this condition was raloxifene which is a selective es trogen receptor modulator. It has a black box warning listed as increased risk of deep vein thrombosis and pulmonary embolism. For this reason, I have stopped this medication. An echocardiogram was ordered but no completed due to staffing issues, so please follow up with an outpatient echocardiogram in ~3 months which will need to be ordered out patient. The indication is to evaluate right heart strain. Your blood pressures have been elevated for your entire stay, so you should continue Norvasc (amlodipine) at home, which was sent to [facility]. Bouchra was sent to [facility] for a better rinaldi for you. You should take 11 more doses of 10 mg tablets, then 5mg twice daily. October 07 will be the first dose of 5mg. Please see Hanna Valdes within one week. Rest when you are tired, slowly increase your activity. - TIME SPENT Time Spent in Discharge (Minutes): 55
[2018-10-01 12:43] VITALS: BP 158/91
== END 2018-10-01 13:42 | disposition home or self-care (01) | DRG 176 ==
LOC: ED 11:50 → MS2 15:50
PROVIDERS: ADMIT Nurse Practitioner Gerontology; ATTEND Nurse Practitioner
DX: I26.99 Other pulmonary embolism without acute cor pulmonale (principal); I51.9 Heart disease, unspecified; Z86.711 Personal history of pulmonary embolism; K21.9 Gastro-esophageal reflux disease without esophagitis; Z90.49 Acquired absence of other specified parts of digestive tract; Z90.710 Acquired absence of both cervix and uterus; Z79.82 Long term (current) use of aspirin; Z88.0 Allergy status to penicillin; R06.00 Dyspnea, unspecified; I10 Essential (primary) hypertension; R00.0 Tachycardia, unspecified; S05.00XA Injury of conjunctiva and corneal abrasion without foreign body, unspecified eye, initial encounter; R19.7 Diarrhea, unspecified; M19.90 Unspecified osteoarthritis, unspecified site; R74.8 Abnormal levels of other serum enzymes; G47.00 Insomnia, unspecified; R06.83 Snoring; M81.0 Age-related osteoporosis without current pathological fracture; E86.0 Dehydration
CPT/HCPCS: 36415; 71045; 71275; 80048; 80053; 83690; 83735; 83880; 84484; 85025; 85379; 93005; 94640; 96372; 99284

== ENCOUNTER 2018-11-03 13:56 | Outpatient (CLI) | payer MEDICARE, OTHER ==
[2018-11-03] MEDS ORDERED: IOVERSOL 320 100 ML VIAL IVP ONE (14:06)
[2018-11-03] MEDS ORDERED: IOVERSOL 320 50 ML VIAL ONE (14:06)
[2018-11-03 14:25] LABS: CREATININE 0.8 mg/dL (0.4-1.0)
--- NOTE | 2018-11-03 16:12 | CT Report ---
Reason: LEFT UPPER QUADRANT PAIN Procedure Date: 11/03/2018 Accession Number: [id number] / [id number] Procedure: CT - Abdomen/Pelvis W CPT Code: FULL RESULT: EXAM: CT ABDOMEN AND PELVIS WITH CONTRAST. EXAM DATE: 11/03/2018 03:22 PM. CLINICAL HISTORY: Left upper quadrant pain. COMPARISONS: Abdomen and pelvis with 02/14/2017 1:48 PM, abdomen and pelvis with 09/05/2014 7:40 PM. TECHNIQUE: Routine helical CT imaging was performed through the abdomen and pelvis. IV contrast: OPTI-320, 100 mL. Enteric contrast: Yes. Reconstructions: Coronal and sagittal. In accordance with CT protocol optimization, one or more of the following dose reduction techniques were utilized for this exam: automated exposure control, adjustment of mA and/or KV based on patient size, or use of iterative reconstructive technique. FINDINGS: Lung Bases: Dependent changes. Liver: Hepatic steatosis with focal fatty sparing. Gallbladder/Bile Ducts: Surgically absent gallbladder. Spleen: Normal. Pancreas: Normal. Adrenal Glands: Normal. Kidneys: There is a 1.4 cm left upper pole cyst which is not characterized as simple, no significant change compared to 2016, also similar to 2014. Kidneys are otherwise unremarkable. Peritoneal Cavity/Bowel: Diverticulosis without diverticulitis. No free fluid, free air or adenopathy. No masses or acute inflammatory process. The appendix is not identified. There is no pericecal inflammation. Pelvic Organs: Normal. The bladder and visualized pelvic organs are within normal limits. Vasculature: No aneurysms or other significant abnormality. Bones: No significant abnormality. Other: None. IMPRESSION: Hepatic steatosis. The etiology of the patient's left upper quadrant pain is not identified. Uncharacterized left upper pole renal cyst, while the finding appears similar to 2014, recommend follow-up by ultrasound in 6-12 months to clarify whether this is a simple cyst which does not require surveillance. RADIA
== END 2018-11-03 13:57 | disposition home or self-care (01) ==
LOC: LAB 13:56
PROVIDERS: ATTEND Physician Assistant
DX: R10.12 Left upper quadrant pain (principal); I26.99 Other pulmonary embolism without acute cor pulmonale
CPT/HCPCS: 36415; 74177; 82565; Q9967

== ENCOUNTER 2018-12-19 12:39 | Outpatient (CLI) | payer MEDICARE, OTHER | END 2018-12-19 12:40 | disposition home or self-care (01) | LOC: DI 12:39 | PROVIDERS: ATTEND Physician Assistant | DX: I26.99 Other pulmonary embolism without acute cor pulmonale (principal) | CPT/HCPCS: 93306 ==

== ENCOUNTER 2019-03-03 07:58 | Outpatient (CLI) | payer MEDICARE, OTHER ==
[2019-03-03 08:43] LABS: ALBUMIN 3.8 g/dL (3.2-5.5); ALBUMIN/GLOBULIN RATIO 1.1 (1.0-2.2); ALKALINE PHOSPHATASE 79 IU/L (42-121); ALT ALANINE AMINOTRANSFERASE 20 IU/L (10-60); AST ASPARTATE AMINOTRANSFERASE 18 IU/L (10-42); BILIRUBIN,TOTAL 0.6 mg/dL (0.2-1.0); BUN - BLOOD UREA NITROGEN 23 mg/dL (6-20); CALCIUM 9.1 mg/dL (8.5-10.3); CARBON DIOXIDE - CO2 23 mmol/L (21-32); CHLORIDE 105 mmol/L (101-111); CHOL/HDL RATIO 4.6 (<4.4); CHOLESTEROL 286 mg/dL; CREATININE 0.9 mg/dL (0.4-1.0); GFR - MDRD 61 (>89); GLUCOSE 113 mg/dL (70-100); HDL CHOLESTEROL 62 mg/dL; LDL CHOLESTEROL,CALCULATED 197 mg/dL; LDL/HDL RATIO 3.2 (<4.4); SODIUM 139 mmol/L (135-145); TOTAL PROTEIN 7.2 g/dL (6.7-8.2); VLDL CHOLESTEROL 27 mg/dL
== END 2019-03-03 07:59 | disposition home or self-care (01) ==
LOC: LAB 07:58
PROVIDERS: ATTEND Physician Assistant
DX: E78.2 Mixed hyperlipidemia (principal); E55.9 Vitamin D deficiency, unspecified; Z13.1 Encounter for screening for diabetes mellitus
CPT/HCPCS: 36415; 80053; 80061; 82306; 83721

== ENCOUNTER 2019-03-09 10:18 | Outpatient (CLI) | payer MEDICARE, OTHER ==
--- NOTE | 2019-03-10 09:37 | Mammography Report ---
Reason: ENCOUNTER FOR SCREENING MAMMOGRAM FOR MALIGNANT NE Procedure Date: 03/09/2019 Accession Number: [id number] / [id number] Procedure: ANA LUISA - Screening Mammo w/Bubba CPT Code: FULL RESULT: EXAM: Screening Mammo w/Bubba DATE: 03/09/2019 10:43 AM CLINICAL HISTORY: Screening encounter. History of nulliparity. History of right breast lumpectomy in 2007, negative pathology. TECHNIQUE: (B) - Bilateral CC and MLO views were obtained. COMPARISON: 02/26/2018 through 04/08/2013. PARENCHYMAL PATTERN: (D) - The breast(s) demonstrate(s) heterogeneously dense fibroglandular parenchyma. FINDINGS: Postsurgical changes in the left breast is stable. In the right lateral breast is a grouping of calcifications which appears similar to 2018 but has been slowly increasing over time and requires additional views with spot magnification and ultrasound. The finding resides approximately 5.5 cm from the nipple and is best delineated on left MLO 3-D image 22 and the left CC 3-D image 20. There are no suspicious masses, calcifications, or areas of distortion in the right breast. IMPRESSION: Incomplete examination. BI-RADS category 0. RECOMMENDATION: (ADDMU) - Additional views using both Mammography and Ultrasound recommended. Left lateral breast. BI-RADS CATEGORY: (0) - Incomplete Examination - need additional evaluation. STANDARD QUALIFYING STATEMENTS: 1. This examination was not reviewed with the aid of Computer-Aided Detection (CAD). 2. A negative or benign imaging report should not preclude biopsy if clinically suspicious findings are present. 3. Dense breasts may obscure an underlying neoplasm. 4. This examination was reviewed with the aid of 3D breast imaging (tomosynthesis).
== END 2019-03-09 10:19 | disposition home or self-care (01) ==
LOC: DI 10:18
PROVIDERS: ATTEND Physician Assistant
DX: Z12.31 Encounter for screening mammogram for malignant neoplasm of breast (principal)
CPT/HCPCS: 77063; 77067

== ENCOUNTER 2019-03-20 08:52 | Outpatient (CLI) | payer MEDICARE, OTHER ==
--- NOTE | 2019-03-20 12:58 | Mammography Report ---
Reason: ABNORMAL MAMMOGRAM Procedure Date: 03/20/2019 Accession Number: [id number] / [id number] Procedure: ANA LUISA - Diag Special Views Dig LT CPT Code: FULL RESULT: EXAM: Diag Special Views Dig LT DATE: 03/20/2019 9:27 AM CLINICAL HISTORY: Diagnostic examination.The patient is recalled from screening for increasing left breast calcifications. TECHNIQUE: (L) - Left left spot magnified CC, left ML and left spot magnified ML images are obtained. COMPARISON: 03/09/2019 through 04/08/2013. PARENCHYMAL PATTERN: (D) - The breast(s) demonstrate(s) heterogeneously dense fibroglandular parenchyma. FINDINGS: Regionally grouped linear branching calcifications in the left lateral breast are not definitely characterized as large and rodlike and have increased over time. This warrants biopsy. No associated architectural distortion or masses identified. IMPRESSION: Suspicious findings. BI-RADS category 4. RECOMMENDATION: (BIOPSY) - left breast stereotactic biopsy. BI-RADS CATEGORY: (4) - Suspicious. STANDARD QUALIFYING STATEMENTS: 1. This examination was not reviewed with the aid of Computer-Aided Detection (CAD). 2. A negative or benign imaging report should not preclude biopsy if clinically suspicious findings are present. 3. Dense breasts may obscure an underlying neoplasm. 4. This examination was reviewed with the aid of 3D breast imaging (tomosynthesis).
== END 2019-03-20 08:53 | disposition home or self-care (01) ==
LOC: DI 08:52
PROVIDERS: ATTEND Physician Assistant
DX: R92.0 Mammographic microcalcification found on diagnostic imaging of breast (principal)

== ENCOUNTER 2019-04-06 09:14 | Outpatient (CLI) | payer MEDICARE, OTHER ==
[~2019-04-06 09:14] MED LIST: BUFFERED LIDOCAINE 10 ML SYRINGE ONE; BUPIVACAINE 0.5%-EPI 1:200000 PF 10 ML VIAL ONE
[2019-04-06] MEDS ORDERED: BUFFERED LIDOCAINE 10 ML SYRINGE IU ONE (13:51)
--- NOTE | 2019-04-06 15:00 | Mammography Report ---
Reason: ABN MAMMOG - LT BREAST CALCS Procedure Date: 04/06/2019 Accession Number: [id number] / [id number] Procedure: ANA LUISA - Stereotactic Core BX LT CPT Code: 37221 FULL RESULT: EXAM: Stereotactic Core BX LT DATE: 04/06/2019 12:10 PM CLINICAL HISTORY: ABN MAMMOG - LT BREAST CALCS COMPARISON: 03/20/2019 and 03/09/2019. CLINICAL DATA: Target calcifications measuring up to 3 cm x 1 cm in distribution in the 4 o'clock axis of the left breast. Informed consent was obtained. The patient was positioned in the mammography machine with biopsy attachment. Targeting imaging was obtained and the lesion was selected. The breast was approached from the cranial aspect. Using standard aseptic technique, 1% buffered lidocaine was injected into the breasts for local anesthesia. A small caitlin was made in the skin with a #11 blade. A 9-gauge vacuum-assisted device was advanced into the breasts towards the target and confirmatory imaging was obtained to verify targeting and 12 specimens were obtained. Specimen radiography was performed which demonstrated the presence of calcifications in the sample. A biopsy marker clip could not be placed due to technical reasons. The biopsy device was subsequently removed from the breast. Hemostasis was achieved. Follow-up mammography was then performed to verify biopsy targeting. The mammography showed decrease in previously seen calcifications in expected biopsy changes . The wound was dressed and ice applied. The patient was observed for approximately 15 minutes, then discharged from the diagnostic imaging Department in stable condition following instructions on wound care and obtaining biopsy results. The tissue was sent for histologic analysis. IMPRESSION: Biopsy of left breast calcifications. RADIA
== END 2019-04-06 09:15 | disposition home or self-care (01) ==
LOC: DI 09:14
PROVIDERS: ATTEND Physician Assistant
DX: D24.2 Benign neoplasm of left breast (principal); N60.22 Fibroadenosis of left breast
CPT/HCPCS: 19081

== ENCOUNTER 2019-04-21 09:45 | Outpatient (CLI) | payer MEDICARE, OTHER | END 2019-04-21 23:59 | disposition home or self-care (01) | LOC: LAB.R 09:45 | PROVIDERS: ATTEND Physician Assistant | DX: R19.7 Diarrhea, unspecified (principal) | CPT/HCPCS: 81599; 87015; 87045; 87046; 87272; 87329 ==

== ENCOUNTER 2019-04-21 12:54 | Outpatient (CLI) | payer MEDICARE, OTHER ==
[2019-04-21 13:58] LABS: THYROID STIMULATING HORMONE 2.86 uIU/mL (0.34-5.60)
[2019-04-21 14:00] LABS: FREE T4 (FREE THYROXINE) 0.93 ng/dL (0.58-1.64)
== END 2019-04-21 12:55 | disposition home or self-care (01) ==
LOC: LAB 12:54
PROVIDERS: ATTEND Physician Assistant
DX: R19.7 Diarrhea, unspecified (principal)
CPT/HCPCS: 36415; 81599; 84439; 84443; 87015; 87045; 87046; 87272; 87329

== ENCOUNTER 2019-08-11 09:23 | Outpatient (CLI) | payer MEDICARE, OTHER ==
[2019-08-11 10:09] LABS: ALBUMIN 3.7 g/dL (3.2-5.5); ALBUMIN/GLOBULIN RATIO 1.2 (1.0-2.2); ALKALINE PHOSPHATASE 77 IU/L (42-121); ALT ALANINE AMINOTRANSFERASE 23 IU/L (10-60); AST ASPARTATE AMINOTRANSFERASE 20 IU/L (10-42); BILIRUBIN,TOTAL 0.6 mg/dL (0.2-1.0); BUN - BLOOD UREA NITROGEN 22 mg/dL (6-20); CALCIUM 9.3 mg/dL (8.5-10.3); CARBON DIOXIDE - CO2 25 mmol/L (21-32); CHLORIDE 108 mmol/L (101-111); CHOL/HDL RATIO 3.9 (<4.4); CHOLESTEROL 244 mg/dL; CREATININE 0.9 mg/dL (0.4-1.0); GFR - MDRD 61 (>89); GLUCOSE 112 mg/dL (70-100); HDL CHOLESTEROL 63 mg/dL; LDL CHOLESTEROL,CALCULATED 148 mg/dL; LDL CHOLESTEROL,DIRECT 181 mg/dL; LDL/HDL RATIO 2.3 (<4.4); SODIUM 143 mmol/L (135-145); TOTAL PROTEIN 6.9 g/dL (6.7-8.2); VLDL CHOLESTEROL 33 mg/dL
== END 2019-08-11 09:24 | disposition home or self-care (01) ==
LOC: LAB 09:23
PROVIDERS: ATTEND Physician Assistant
DX: E78.2 Mixed hyperlipidemia (principal); R73.01 Impaired fasting glucose
CPT/HCPCS: 36415; 80053; 80061; 81599; 83036; 83721

== ENCOUNTER 2019-08-13 09:57 | Outpatient (CLI) | payer MEDICARE, OTHER | END 2019-08-13 09:58 | disposition home or self-care (01) | LOC: LAB 09:57 | PROVIDERS: ATTEND Physician Assistant | DX: R73.01 Impaired fasting glucose (principal) | CPT/HCPCS: 82947 ==

== ENCOUNTER 2021-01-04 14:35 | Outpatient (CLI) | payer MEDICARE, OTHER ==
--- NOTE | 2021-01-05 12:20 | Mammography Report ---
BILATERAL DIGITAL SCREENING MAMMOGRAM 3D/2D: 01/04/2021 CLINICAL: Routine screening. Comparison is made to exams dated: 03/20/2019 mammogram, 03/09/2019 mammogram, 02/26/2018 mammogram, 03/02 mammogram, and 04/06/2019 stereotactic biopsy - [facility]. The tissue of bot h breasts is heterogeneously dense. This may lower the sensitivity of mammography. There is a benign post surgical scar in the left breast in the lateral aspect that correlates with bi opsy site. There also are stable benign surgical clips in the right breast in the medial aspect. No significant masses, calcifications, or other findings are seen in either breast. IMPRESSION: BENIGN There is no mammographic evidence of malignancy. A 1 year screening mammogram is recommended. This exam was interpreted at Station ID: [id number]. NOTE: For mammograms, a report in lay terms will be sent to the patient. Approximately 15% of breast malignancies will not be visualized mammographically. In the management of a palpable breast mass, a negative mammogram must not discourage biopsy of a clinically suspicious lesion. Electronically Signed By: Ever parkinson/jim:01/04/2021 16:37:10 ACR BI-RADS Category 2: Benign Finding(s) 3342F PARENCHYMAL PATTERN: (D) - The breast(s) demonstrate(s) heterogeneously dense fibroglandular kate montaño. BI-RADS CATEGORY: (2) - 2 RECOMMENDATION: (ANNUAL) - Recommend routine annual screening mammography. [id number] 1 year screening LATERALITY: (B)
== END 2021-01-04 14:36 | disposition home or self-care (01) ==
LOC: DI 14:35
PROVIDERS: ATTEND Physician Assistant
DX: Z12.31 Encounter for screening mammogram for malignant neoplasm of breast (principal)

== ENCOUNTER 2021-01-04 14:46 | Outpatient (CLI) | payer MEDICARE, OTHER ==
--- NOTE | 2021-01-04 17:25 | DEXA Report ---
PROCEDURE: Dexa Spine and/or Hip INDICATIONS: OSTEOPOROSIS TECHNIQUE: Dual energy x-ray absorptiometry (DXA) was performed on a [employer] System. Regions measur ed are the AP Spine, femoral neck, and if needed forearm. COMPARISON: 02/26/2018.. FINDINGS: Lumbar Spine: Bone Mineral Density 0.895 g/cm/cm,T score -2.4, osteopenia, and this represents a nonstatisticall y significant reduction from the comparison study in 2018 Left Hip: Bone Mineral Density 0.799 g/cm/cm,T score -1.8, osteopenia in this represents a statistically signi ficant 8% reduction in bone mineral density at the left hip region overall with reference to the comp [facility] study of 02/26/2018. Left Femoral Neck: Bone Mineral Density 0.803 g/cm/cm, T score -1.7, osteopenia (T score greater or equal to -1.0: NORMAL) (T score from -1.1 to -2.4: OSTEOPENIA) (T score less than or equal to -2.5 to: OSTEOPOROSIS) Impression: Osteopenia at the lumbosacral spine overall, the left hip and the left femoral neck. Plea se note that the change at the lumbosacral spine is not statistically significant but there has been a statistically significant 8% reduction in bone mineral density when compared to the most recent abdirizak or study at the left hip overall. Patients with diagnosis of osteoporosis or osteopenia should have regular bone mineral density assess ment. For those eligible for Medicare, routine testing is allowed once every 2 years. Testing frequ ency can be increased for patients who have rapidly progressing disease or for those who are receivin g medical therapy to restore bone mass. Reviewed by: Dean Bullard MD on 01/04/2021 5:24 PM PDT Approved by: Dean Bullard MD on 01/04/2021 5:24 PM PDT Station ID: [id number]
== END 2021-01-04 14:47 | disposition home or self-care (01) ==
LOC: DI 14:46
PROVIDERS: ATTEND Physician Assistant
DX: M85.89 Other specified disorders of bone density and structure, multiple sites (principal)

== ENCOUNTER 2021-02-25 10:21 | Outpatient (CLI) | payer MEDICARE, OTHER | END 2021-02-25 23:59 | disposition home or self-care (01) | LOC: LAB.N 10:21 | PROVIDERS: ATTEND Physician Assistant Medical | DX: N30.00 Acute cystitis without hematuria (principal) | CPT/HCPCS: 87086; 87181 ==

== ENCOUNTER 2022-01-22 09:34 | Outpatient (CLI) | payer MEDICARE, OTHER ==
[2022-01-22 10:15] LABS: THYROID STIMULATING HORMONE 15.07 uIU/mL (0.34-5.60)
[2022-01-22 10:17] LABS: FREE T4 (FREE THYROXINE) 1.16 ng/dL (0.58-1.64)
== END 2022-01-22 09:35 | disposition home or self-care (01) ==
LOC: LAB 09:34
PROVIDERS: ATTEND Registered Nurse
DX: E03.9 Hypothyroidism, unspecified (principal)
CPT/HCPCS: 36415; 84439; 84443

== ENCOUNTER 2022-01-23 07:50 | Outpatient (CLI) | payer MEDICARE, OTHER ==
[2022-01-23 11:48] LABS: BASOPHILS % (AUTO) 0.8 %; EOSINOPHILS # (AUTO) 0.1 10^3/uL (0.0-0.7); EOSINOPHILS % (AUTO) 1.6 %; HCT - HEMATOCRIT 42.9 % (37.0-47.0); HGB - HEMOGLOBIN 13.8 g/dL (12.0-16.0); LYMPHOCYTES # (AUTO) 0.5 10^3/uL (1.5-3.5); LYMPHOCYTES % (AUTO) 9.4 %; MEAN CORPUSCULAR HEMOGLOBIN 29.6 pg (27.0-31.0); MEAN CORPUSCULAR HGB CONC 32.2 g/dL (32.0-36.0); MEAN CORPUSCULAR VOLUME 92.1 fL (81.0-99.0); MEAN PLATELET VOLUME 10.5 fL (7.9-10.8); MONOCYTES # (AUTO) 0.6 10^3/uL (0.0-1.0); NEUTROPHILS # (AUTO) 3.8 10^3/uL (1.5-6.6); PLT - PLATELET COUNT 235 10^3/uL (130-450); RED BLOOD COUNT 4.66 10^6/uL (4.20-5.40); RED CELL DISTRIBUTION WIDTH 12.5 % (12.0-15.0)
[2022-01-23 12:12] LABS: ALBUMIN/GLOBULIN RATIO 1.3 (1.0-2.2); BILIRUBIN,TOTAL 0.7 mg/dL (0.2-1.0); CALCIUM 9.3 mg/dL (8.5-10.3); POTASSIUM 4.3 mmol/L (3.5-5.0); TOTAL PROTEIN 7.2 g/dL (6.7-8.2)
[2022-01-23 12:20] LABS: BILIRUBIN,URINE NEGATIVE (NEGATIVE); GLUCOSE, URINE (UA) NEGATIVE (NEGATIVE); KETONES,URINE (UA) NEGATIVE (NEGATIVE); LEUKOCYTE ESTERASE, URINE MODERATE (NEGATIVE); NITRITE,URINE NEGATIVE (NEGATIVE); OCCULT BLOOD,URINE SMALL (NEGATIVE); PROTEIN,URINE NEGATIVE (NEGATIVE); UROBILINOGEN,URINE 0.2 (NORMAL) E.U./dL (NORMAL)
[2022-01-23 12:23] LABS: CLARITY,URINE CLEAR (CLEAR)
[2022-01-23 12:29] LABS: THYROID STIMULATING HORMONE 21.67 uIU/mL (0.34-5.60)
[2022-01-23 12:51] LABS: BACTERIA,URINE Few /HPF (None Seen); SQUAMOUS EPITHELIAL CELL,UR FEW Squamous (<= Few); WBC CLUMPS,URINE PRESENT
[2022-01-23 13:04] LABS: FREE T4 (FREE THYROXINE) 1.15 ng/dL (0.58-1.64)
[2022-01-23 13:28] LABS: RBC,URINE 0-5 /HPF (0-5)
== END 2022-01-23 23:59 | disposition home or self-care (01) ==
LOC: LAB.N 07:50
PROVIDERS: ATTEND Family Medicine
DX: R10.32 Left lower quadrant pain (principal); R10.9 Unspecified abdominal pain
CPT/HCPCS: 36415; 80053; 81001; 83690; 84439; 84443; 85025; 87086

== ENCOUNTER 2022-01-24 18:59 | Emergency (ER) | payer MEDICARE, OTHER ==
[2022-01-24 19:23] LABS: BASOPHILS % (AUTO) 0.8 %; EOSINOPHILS # (AUTO) 0.1 10^3/uL (0.0-0.7); EOSINOPHILS % (AUTO) 1.4 %; HCT - HEMATOCRIT 40.8 % (37.0-47.0); HGB - HEMOGLOBIN 13.4 g/dL (12.0-16.0); LYMPHOCYTES # (AUTO) 0.6 10^3/uL (1.5-3.5); LYMPHOCYTES % (AUTO) 12.2 %; MEAN CORPUSCULAR HEMOGLOBIN 30.1 pg (27.0-31.0); MEAN CORPUSCULAR HGB CONC 32.8 g/dL (32.0-36.0); MEAN CORPUSCULAR VOLUME 91.7 fL (81.0-99.0); MEAN PLATELET VOLUME 9.6 fL (7.9-10.8); MONOCYTES # (AUTO) 0.5 10^3/uL (0.0-1.0); MONOCYTES % (AUTO) 9.5 %; NEUTROPHILS # (AUTO) 3.9 10^3/uL (1.5-6.6); NEUTROPHILS % (AUTO) 75.5 %; PLT - PLATELET COUNT 225 10^3/uL (130-450); RED BLOOD COUNT 4.45 10^6/uL (4.20-5.40); RED CELL DISTRIBUTION WIDTH 12.5 % (12.0-15.0); WHITE BLOOD COUNT 5.2 x10^3/uL (4.8-10.8)
[2022-01-24 19:36] LABS: ALBUMIN/GLOBULIN RATIO 1.3 (1.0-2.2); BILIRUBIN,TOTAL 0.4 mg/dL (0.2-1.0); CALCIUM 9.3 mg/dL (8.5-10.3); CREATININE 0.9 mg/dL (0.4-1.0); POTASSIUM 4.3 mmol/L (3.5-5.0); TOTAL PROTEIN 7.1 g/dL (6.7-8.2)
--- NOTE | 2022-01-24 19:48 | ED Physician Documentation ---
PD HPI ABD PAIN - Stated complaint Stated Complaint: ABD PX - Chief complaint Chief Complaint: Abd Pain - History obtained from History obtained from: Patient - Additional information Additional information: 81-year-old woman presents for evaluation of abdominal pain. She has an extensive history of abdominal surgeries including cholecystectomy, hysterectomy, oophorectomy, appendectomy. Last colonoscopy about 5 years ago. She had a week and a half of abdominal pain. It started actually in the left lower lateral chest but about a week ago moved to the central abdomen. It is not associated with changes in bowel movements. No nausea or fevers. She did start Augmentin yesterday for a cat bite that was infected which has since improved on the right forearm. She went to urgent care yesterday and was referred here for CT, but was unable to have it done as an outpatient. Review of Systems Ten Systems: 10 systems reviewed and negative Constitutional: denies: Fever, Chills Cardiac: reports: Reviewed and negative Respiratory: reports: Reviewed and negative PD PAST MEDICAL HISTORY - Past Medical History Cardiovascular: None Respiratory: None Neuro: None Endocrine/Autoimmune: None GI: None, GERD : None HEENT: None Psych: None Musculoskeletal: None Derm: None - Past Surgical History Past Surgical History: Yes General: Cholecystectomy, Appendectomy Ortho: Other /POULTRY BONER: Hysterectomy HEENT: Tonsil/Adenoidectomy - Present Medications Home Medications: Ambulatory Orders Medication Instructions Recorded Confirmed Aspirin 81 mg PO DAILY 09/05/14 09/29/18 Zolpidem [Ambien] 5 mg PO QPM PRN 09/05/14 09/29/18 Cholecalciferol (Vitamin D3) 5,000 units PO DAILY 02/28/16 09/29/18 [Vitamin D3] Calcium - Elemental 1,000 mg PO DAILY 09/29/18 09/29/18 Apixaban [Eliquis] 5 mg PO BID #60 tab.ds.pk 09/30/18 Acetaminophen [Tylenol] 650 mg PO Q4HR PRN tablet 10/01/18 Amlodipine Besylate [Norvasc] 2.5 mg PO DAILY #30 tablet 10/01/18 Apixaban [Eliquis] 10 mg PO BID #22 tab.ds.pk 10/01/18 Saccharomyces Boulardii [Florastor] 250 mg PO BID #60 capsule 10/01/18 Omeprazole 40 mg PO DAILY #30 cap 01/24/22 - Allergies Allergies/Adverse Reactions: Allergies Allergy/AdvReac Type Severity Reaction Status Date / Time erythromycin base Allergy Anaphylaxis Verified 01/24/22 19:06 Penicillins Allergy Unknown Verified 09/29/18 16:07 promethazine HCl * Allergy Anxiety Verified 01/24/22 19:06 [From Phenergan] venom-honey bee Allergy Anaphylaxis Verified 01/24/22 19:06 [bee venom (honey bee)] - Social History Does the pt smoke?: No Smoking Status: Never smoker Does the pt drink ETOH?: No Does the pt have substance abuse?: Yes - Immunizations Immunizations are current?: Yes - POLST Patient has POLST: Yes POLST Status: DNR PD ED PE NORMAL - Vitals Vital signs reviewed: Yes - General General: Alert and oriented X 3, No acute distress - Cardiac Cardiac: RRR, No murmur - Respiratory Respiratory: No respiratory distress, Clear bilaterally - Abdomen Abdomen: No organomegaly, Other (Mild left-sided abdominal tenderness with slightly hyperactive bowel tones. No surgical signs.) - Derm Derm: Normal color, Warm and dry - Extremities Extremities: No edema, No calf tenderness / cord - Neuro Neuro: Alert and oriented X 3, Normal speech Results - Vitals Vitals: Vital Signs - 24 hr 01/24/22 01/24/22 19:02 21:05 Temperature 36.5 C 37.0 C Heart Rate 79 78 Respiratory 14 16 Rate Blood Pressure 170/80 H 156/86 H O2 Saturation 98 98 Oxygen O2 Source Room air - Labs Labs: Laboratory Tests 01/24/22 01/24/22 19:15 19:15 WBC 5.2 RBC 4.45 Hgb 13.4 Hct 40.8 MCV 91.7 MCH 30.1 MCHC 32.8 RDW 12.5 Plt Count 225 MPV 9.6 Neut # (Auto) 3.9 Lymph # (Auto) 0.6 L Carbon # (Auto) 0.5 Eos # (Auto) 0.1 Baso # (Auto) 0.0 Absolute Nucleated RBC 0.00 Nucleated RBC % 0.0 Sodium 137 Potassium 4.3 Chloride 105 Carbon Dioxide 22 Anion Gap 10.0 BUN 22 H Creatinine 0.9 Estimated GFR (MDRD) 60 L Glucose 140 H Calcium 9.3 Total Bilirubin 0.4 AST 17 ALT 16 Alkaline Phosphatase 65 Total Protein 7.1 Albumin 4.0 Globulin 3.1 Albumin/Globulin Ratio 1.3 Lipase 41 - Rads (name of study) CT abdomen and pelvis Radiology: EMP read contemporaneously (Gastritis and other incidental findings, discussed with patient and written report given to patient.) PD MEDICAL DECISION MAKING - ED course ED course: 81yo female with L mid/upper abd pain. CT showing gastritis, likely causative. Incidental findings d/w patient and cope of Ct read given to patient. Will trial PPI and d/w pt s/sx necessatating return as well as necessary f/u and consider EGD. Departure - Departure Disposition: Home, Self Care Clinical Impression: Gastritis Qualifiers: Gastritis type: unspecified gastritis Chronicity: acute Gastritis bleeding: without bleeding Qualified Code(s): K29.00 - Acute gastritis without bleeding Condition: Good Record reviewed to determine appropriate education?: Yes Instructions: ED Gastritis Prescriptions: Omeprazole 40 mg PO DAILY #30 cap Comments: As discussed, the work-up tonight shows CT showing gastritis and I suspect this is the cause of your symptoms. Incidental findings on the CT so with some small pulmonary nodules, I hiatal hernia, fatty liver and diverticulosis. Plan would be to start a proton pump inhibitor such as the one I am prescribing. I suspect you will be better in the next few days. Follow-up with Melinda Gomez on Saturday as scheduled. If symptoms are persistent, consideration for referral for upper endoscopy. Return if worsening. Also discuss the small pulmonary nodules with Melinda. No follow-up may be req uired but you might consider a repeat CT scan of the chest in 6 to 12 months. Discharge Date/Time: 01/24/22 21:07
[2022-01-24] MEDS ORDERED: IOVERSOL 320 100 ML VIAL IVP ONE ×2 (19:59→20:34)
--- NOTE | 2022-01-24 20:28 | CT Report ---
PROCEDURE: Abdomen/Pelvis W INDICATIONS: abdominal pain CONTRAST: IV CONTRAST: Optiray 320 ml: 100 PO CONTRAST: *NO PO CONTRAST TECHNIQUE: After the administration of intravenous contrast, 5 mm thick sections acquired from the diaphragms to the symphysis. 5 mm thick coronal and sagittal reformats were acquired. For radiation dose reducti on, the following was used: automated exposure control, adjustment of mA and/or kV according to jada ent size. COMPARISON: CT abdomen pelvis 11/03/2018. FINDINGS: Image quality: Excellent. Lung bases:Within the right lower lobe, there is a 0.4 cm nodule series 4 image 3 and a 0.3 cm pleur al-based nodule on series 4 image 10. There is mild dependent atelectasis bilaterally. Heart: Heart is normal in size. There is a moderate-sized hiatal hernia. ABDOMEN: Liver:There is diffuse hypoattenuation of the liver consistent with fatty infiltration. Gallbladder:Surgically absent. Biliary ducts: No biliary ductal dilatation. Pancreas: Unremarkable. Spleen: Normal in size. Adrenal Glands: No adrenal nodules. Kidneys and Ureters: No hydronephrosis.There is a left renal cyst and a small exophytic hypodensity too small to characterize but likely represents a cyst. Stomach and Bowel:There is mild gastric wall thickening in the antrum. Small and large bowel loops a re normal in caliber and wall thickness. No pericecal inflammatory changes to suggest appendicitis. T here is colonic diverticulosis without acute diverticulitis. Peritoneum: No abnormal intraperitoneal fluid. No free air. Ventral Wall: No hernia. Abdominal Nodes: No retroperitoneal or mesenteric adenopathy by size criteria. Vessels: Aorta and inferior vena cava are normal in size. PELVIS: Pelvic Organs:The uterus is surgically absent. Bladder: Unremarkable. Pelvic Nodes: No enlarged lymph nodes. Miscellaneous: No inguinal hernias are seen. Bones: Visualized osseous structures demonstrate no suspicious focal lesions. There is anterolisthes is of L4 on L5 measuring approximately 0.4 cm. IMPRESSION: 1. Mild gastric wall thickening in the antrum is nonspecific and may reflect a mild gastritis. 2. Colonic diverticulosis without acute diverticulitis. 3. Hepatic steatosis. Reviewed by: Mateus Martinez MD on 01/24/2022 8:26 PM PDT Approved by: Mateus Martinez MD on 01/24/2022 8:26 PM PDT Station ID: [id number]
[2022-01-24] MEDS ORDERED: PANTOPRAZOLE 40 MG TABLET PO STA (20:54)
[2022-01-24 21:07] VITALS: BP 156/86
== END 2022-01-24 21:07 | disposition home or self-care (01) ==
LOC: ED 18:59
DX: K29.00 Acute gastritis without bleeding (principal)
CPT/HCPCS: 36415; 74177; 80053; 83690; 85025; 99282; 99284; A9270; Q9967

== ENCOUNTER 2022-10-25 16:05 | Outpatient (CLI) | payer MEDICARE, OTHER ==
--- NOTE | 2022-10-25 18:09 | XRAY Report ---
PROCEDURE: Knee 3 View RT INDICATIONS: PAIN OF RIGHT KNEE JOINT TECHNIQUE: 3 views of the right knee(s) were acquired. COMPARISON: None. FINDINGS: Bones: No fractures or dislocations. No suspicious bony lesions. There is moderate to severe medial femorotibial joint space narrowing, with associated degenerative c hange with subchondral sclerosis and osteophyte formation. On the sunrise view, there is moderate pat ellofemoral joint space narrowing, with associated remodeling changes, including spurs along the lu ins of the patella. Soft tissues: There is a mild joint effusion. No suspicious soft tissue calcifications. 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 Mild joint effusion seen. If it would be helpful for clinical management decision making, please consider a dedicated, schedule d knee MRI for further evaluation (assuming that there is no contraindication). Reviewed by: Ramsey Fontana MD on 10/25/2022 5:08 PM [facility] Approved by: Ramsey Fontana MD on 10/25/2022 5:08 PM [facility] Station ID: [id number]
== END 2022-10-25 16:06 | disposition home or self-care (01) ==
LOC: DI 16:05
PROVIDERS: ATTEND Nurse Practitioner Family
DX: M17.11 Unilateral primary osteoarthritis, right knee (principal); M25.461 Effusion, right knee

== ENCOUNTER 2022-11-30 17:21 | Outpatient (CLI) | payer MEDICARE, OTHER ==
--- NOTE | 2022-12-03 11:41 | MRI Report ---
PROCEDURE: KNEE WO - RT INDICATIONS: RIGHT KNEE PAIN TECHNIQUE: Noncontrast sagittal PD fast spin echo and T2 fast spin echo with fat saturation, sagittal 3-D gradie nt sequence with fat saturation; coronal T1 spin echo and PD fast spin echo with fat saturation, and axial PD fast spin echo with fat saturation through the knee. COMPARISON: X-ray right knee, 10/25/2022. FINDINGS: Image quality: Excellent. Menisci: There is medial meniscal extrusion. There is large horizontal tear of the posterior horn of the medial meniscus. The body of the medial meniscus is truncated is complex tear. There is intrasubs tance degeneration of the anterior horn. There is large horizontal tear involving both anterior and posterior horns of the lateral meniscus. C omplex tear of the body of the lateral meniscus with both vertical and horizontal component. There is tear of the posterior root of the medial meniscus and anterior root of the lateral meniscus. Cruciate ligaments: The anterior and posterior cruciate ligaments appear intact. Mild mucoid degene ration of ACL. Medial structures: There is grade 1 sprain of the medial collateral ligament. The semimembranosus te ndon insertions and meniscocapsular junction appear intact. Visualized portions of the pes anserinus tendons appear normal. No abnormal bursal fluid. Lateral structures: The lateral collateral ligament, long and short heads of the biceps femoris tend on appear intact. The popliteus tendon appears normal. Iliotibial band appears normal. Anterior structures: The quadriceps and patellar tendons appear intact. Patellar alignment is ying l. No femoral trochlear dysplasia or ventral trochlear prominence. No edema in the infrapatellar fa t pad. Bones and cartilage: No bone marrow contusions or fractures. There is avhblmci-jo-ksobzh tricompartm ental cartilage thinning and signal degeneration. Subchondral edema in the medial tibial plateau is noted, likely reactive. Joint space: There is small to moderate knee joint effusion. Small Francis's cyst. Normal appearing s ynovial plicae are incidentally noted. IMPRESSION: 1. Medial meniscal tear as described. 2. Lateral meniscal tear as described. 3. Grade 1 sprain of MCL. 4. Mild mucoid degeneration of ACL. 5. Jemrdybm-gj-tahaqq tricompartmental cartilage loss and degeneration. 6. Ikmoz-mh-hvnuzjyf knee joint effusion. 7. Small Francis's cyst. Reviewed by: Nando Campbell MD on 12/03/2022 11:40 AM PDT Approved by: Nando Campbell MD on 12/03/2022 11:40 AM PDT Station ID: [id number]
== END 2022-11-30 17:22 | disposition home or self-care (01) ==
LOC: DI 17:21
PROVIDERS: ATTEND Physician Assistant
DX: S83.231A Complex tear of medial meniscus, current injury, right knee, initial encounter (principal); S83.271A Complex tear of lateral meniscus, current injury, right knee, initial encounter; S83.411A Sprain of medial collateral ligament of right knee, initial encounter; M23.8X1 Other internal derangements of right knee; M94.261 Chondromalacia, right knee; M17.11 Unilateral primary osteoarthritis, right knee; M25.461 Effusion, right knee; M71.21 Synovial cyst of popliteal space [Baker], right knee

== ENCOUNTER 2023-12-10 16:57 | Outpatient (CLI) | payer MEDICARE | END 2023-12-10 23:59 | disposition critical access hospital (66) | LOC: EMS 16:57 | DX: S00.81XA Abrasion of other part of head, initial encounter (principal); W18.39XA Other fall on same level, initial encounter; Y92.009 Unspecified place in unspecified non-institutional (private) residence as the place of occurrence of the external cause; Z79.01 Long term (current) use of anticoagulants | CPT/HCPCS: A0425; A0429 ==

== ENCOUNTER 2023-12-10 17:08 | Emergency (ER) | payer MEDICARE, OTHER ==
--- NOTE | 2023-12-10 17:18 | ED Physician Documentation ---
History of Present Illness - Stated complaint Stated Complaint: GLF/HEAD STRIKE - Chief complaint Chief Complaint: Trauma Hd/Nk - History obtained from History obtained from: Patient, EMS - History of Present Illness Timing: Today Pain level max: 0 Pain level now: 0 - Additonal information Additional information: Patient is an 83-year-old female who presents to the emergency department after a ground-level fall. She states she was outside trying to pick tulips when she tripped fell and hit her head on the gravel. Has an abrasion to the right side of the head. No loss of consciousness. Is on Eliquis for history of bilateral PEs. Not having any pain currently. She states she had a right total knee re placement about 5 months ago. No neck or back pain. No loss of consciousness. No seizures. 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 HEENT: Tonsil/Adenoidectomy - Present Medications Home Medications: Ambulatory Orders Medication Instructions Recorded Confirmed Aspirin 81 mg PO DAILY 09/05/14 09/29/18 Zolpidem [Ambien] 5 mg PO QPM PRN 09/05/14 09/29/18 Cholecalciferol (Vitamin D3) 5,000 units PO DAILY 02/28/16 09/29/18 [Vitamin D3] Calcium - Elemental 1,000 mg PO DAILY 09/29/18 09/29/18 Apixaban [Eliquis] 5 mg PO BID #60 tab.ds.pk 09/30/18 Acetaminophen [Tylenol] 650 mg PO Q4HR PRN tablet 10/01/18 Amlodipine Besylate [Norvasc] 2.5 mg PO DAILY #30 tablet 10/01/18 Apixaban [Eliquis] 10 mg PO BID #22 tab.ds.pk 10/01/18 Saccharomyces Boulardii [Florastor] 250 mg PO BID #60 capsule 10/01/18 Omeprazole 40 mg PO DAILY #30 cap 01/24/22 - Allergies Allergies/Adverse Reactions: Allergies Allergy/AdvReac Type Severity Reaction Status Date / Time erythromycin base Allergy Anaphylaxis Verified 01/24/22 19:06 Penicillins Allergy Unknown Verified 09/29/18 16:07 promethazine HCl * Allergy Anxiety Verified 01/24/22 19:06 [From Phenergan] venom-honey bee Allergy Anaphylaxis Verified 01/24/22 19:06 [bee venom (honey bee)] - Social History Does the pt smoke?: No Smoking Status: Never smoker Does the pt drink ETOH?: No Does the pt have substance abuse?: Yes - Immunizations Immunizations are current?: Yes - POLST Patient has POLST: Yes POLST Status: DNR PD ED PE NORMAL - Vitals Vital signs reviewed: Yes - General General: Alert and oriented X 3, No acute distress, Well developed/nourished - HEENT HEENT: PERRL, EOMI, Ears normal, Moist mucous membranes, Other (Abrasion to the right Parietal area of her head) - Neck Neck: Supple, no meningeal sign, No bony TTP - Cardiac Cardiac: RRR, Strong equal pulses - Respiratory Respiratory: No respiratory distress, Clear bilaterally - Abdomen Abdomen: Soft, Non tender, Non distended - Back Back: No spinal TTP - Derm Derm: Warm and dry - Extremities Extremities: Other (Moving all extremities equally, full range of motion of all major joints without any pain or discomfort. Ambulating normally) - Neuro Neuro: Alert and oriented X 3, painter spring 2-12 intact, No motor deficit, No sensory deficit, Normal speech Eye Opening: Spontaneous Motor: Obeys Commands Verbal: Oriented GCS Score: 15 - Psych Psych: Normal mood, Normal affect Results - Vitals Vitals: Vital Signs - 24 hr 12/10/23 12/10/23 17:17 18:17 Temperature 36.1 C L Heart Rate 66 63 Respiratory 18 18 Rate Blood Pressure 166/88 H 127/80 O2 Saturation 98 96 Oxygen O2 Source Room air - Rads (name of study) Head CT Relevant Findings:: Final report received, See rad report PD Medical Decision Making - ED course Complexity details: reviewed results, re-evaluated patient, considered differential, d/w patient ED course: No acute findings on head CT. No evidence of intracranial hemorrhage or skull fracture. Abrasions were cleansed. No lacerations to repair. Tetanus up-to-date. No other injuries. Head injury instructions given at bedside. Patient counseled regarding signs and symptoms for which I believe and urgent re-evaluation would be necessary. Patient with good understanding of and agreement to plan and is comfortable going home at this time This document was made in part using voice recognition software. While efforts are made to proofread this document, sound alike and grammatical errors may occur. Departure - Departure Disposition: 01 Home, Self Care Clinical Impression: Fall Qualifiers: Encounter type: initial encounter Qualified Code(s): W19.XXXA - Unspecified fall, initial encounter Scalp abrasion Qualifiers: Encounter type: initial encounter Qualified Code(s): S00.01XA - Abrasion of scalp, initial encounter Closed head injury Qualifiers: Encounter type: initial encounter Qualified Code(s): S09.90XA - Unspecified injury of head, initial encounter Condition: Good Instructions: ED Head Injury Closed Follow-Up: your,doctor as needed [Other] Comments: Your head CT does not show any acute abnormalities Please follow-up with your doctor as needed for any further care. Please return if you develop worsening headaches, vomiting, seizures or other new or worrisome symptoms. Forms: PCP List Discharge Date/Time: 12/10/23 18:31
--- NOTE | 2023-12-10 18:03 | CT Report ---
PROCEDURE: Head WO INDICATIONS: fall, head injury, takes eliquis TECHNIQUE: Noncontrast 4.5 mm thick angled axial sections acquired from the foramen magnum to the vertex. For r adiation dose reduction, the following was used: automated exposure control, adjustment of mA and/or kV according to patient size. COMPARISON: None. FINDINGS: Image quality: Excellent. CSF spaces: Basal cisterns are patent. No extra-axial fluid collections. Ventricles are symmetric in size and shape. Brain: No midline shift. No intracranial masses or hemorrhage. Hypodensities in the subcortical and periventricular white matter are most commonly seen in setting of chronic microvascular ischemic elisabeth nges. Age-related cerebral and cerebellar volume loss is seen. Intracranial vascular calcifications a re noted in the internal carotid arteries. Skull and face: Calvarium and visualized facial bones are intact, without suspicious lesions. Sinuses: Visualized sinuses and mastoids are clear. IMPRESSION: 1.No acute intracranial pathology. 2.Chronic microvascular ischemic changes and generalized parenchymal volume loss. Reviewed by: Ever Maguire MD on 12/10/2023 6:02 PM PDT Approved by: Ever Maguire MD on 12/10/2023 6:02 PM PDT Station ID: [id number]
[2023-12-10 18:22] VITALS: BP 127/80; O2SAT 96
== END 2023-12-10 18:31 | disposition home or self-care (01) ==
LOC: EDUNIT# → ED 17:08
DX: S09.90XA Unspecified injury of head, initial encounter (principal); S00.01XA Abrasion of scalp, initial encounter; W01.0XXA Fall on same level from slipping, tripping and stumbling without subsequent striking against object, initial encounter; Y93.H2 Activity, gardening and landscaping; Z79.82 Long term (current) use of aspirin; Z79.899 Other long term (current) drug therapy; Z79.01 Long term (current) use of anticoagulants; Z66 Do not resuscitate
CPT/HCPCS: 36415; 99284

== ENCOUNTER 2024-02-10 14:50 | Outpatient (CLI) | payer MEDICARE, OTHER ==
--- NOTE | 2024-02-10 17:00 | DEXA Report ---
PROCEDURE: Dexa Spine and/or Hip INDICATIONS: OSTEOPENIA TECHNIQUE: Dual energy x-ray absorptiometry (DXA) was performed on a [employer] System. Regions measur ed are the AP Spine, femoral neck, and if needed forearm. COMPARISON: 01/04/2021, 02/26/2018, 03/12/2016 FINDINGS: Lumbar Spine: Bone Mineral Density: 0.841 g/cm/cm,T score: -2.8. Since the most recent prior study, there has been a statistically significant decrease in bone mineral density by 6 percent. Left Femoral Neck: Bone Mineral Density: 0.750 g/cm/cm, T score: -2.1. Left Hip: Bone Mineral Density: 0.771 g/cm/cm,T score: -1.9. There has been no statistically significant change in bone mineral density since the prior study. (T score greater or equal to -1.0: NORMAL) (T score from -1.1 to -2.4: OSTEOPENIA) (T score less than or equal to -2.5 to: OSTEOPOROSIS) Impression: By WHO criteria, this patient has osteoporosis. Interval statistical decrease in bone mineral density of the lumbar spine. No statistical interval ch megan in bone mineral density of the hip. Patients with diagnosis of osteoporosis or osteopenia should have regular bone mineral density assess ment. For those eligible for Medicare, routine testing is allowed once every 2 years. Testing frequ ency can be increased for patients who have rapidly progressing disease or for those who are receivin g medical therapy to restore bone mass. Reviewed by: Jamel Wynn MD on 02/10/2024 4:58 PM PDT Approved by: Jamel Wynn MD on 02/10/2024 4:58 PM PDT Station ID: [id number]
== END 2024-02-10 14:51 | disposition home or self-care (01) ==
LOC: DI 14:50
PROVIDERS: ATTEND Registered Nurse
DX: M81.0 Age-related osteoporosis without current pathological fracture (principal)

== ENCOUNTER 2024-04-07 11:45 | Outpatient (CLI) | payer MEDICARE, OTHER ==
--- NOTE | 2024-04-07 14:53 | CT Report ---
PROCEDURE: Thoracic Spine WO INDICATIONS: OSTEOPOROSIS TECHNIQUE: Noncontrast 3 mm thick sections acquired through the region of interest in the thoracic spine. Sagit sagar and coronal reformats were then constructed. For radiation dose reduction, the following was used : automated exposure control, adjustment of mA and/or kV according to patient size. COMPARISON: None. FINDINGS: Image quality: Excellent. Bones: Mild dextroscoliosis at the cervicothoracic junction, and mild levoscoliosis of the thoracic s pine. Vertebral body heights are well-maintained. Multilevel, moderate degenerative disc disease of t he thoracic spine, most pronounced in the mid thoracic spine. Multilevel mild disc desiccation and di sc bulge. Central canal stenosis: Nonsignificant. Right neuroforaminal stenosis: Nonsignificant. Left neuroforaminal stenosis: Nonsignificant. Soft tissue findings: Visualized bilateral lung is unremarkable. Mild calcification of the thoracic a chelsi. Mitral annular calcification. Small hiatal hernia. Suggestion of left renal cyst, partially visualized. IMPRESSION: 1.No compression fracture of the thoracic spine. 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 Reviewed by: Chichi Hare MD on 04/07/2024 2:52 PM PDT Approved by: Chichi Hare MD on 04/07/2024 2:52 PM PDT Station ID: [id number]
--- NOTE | 2024-04-07 15:03 | CT Report ---
PROCEDURE: Lumbar Spine WO INDICATIONS: OSTEOPOROSIS TECHNIQUE: Noncontrast 3 mm thick sections acquired from the T12 level to the sacrum. Sagittal and coronal refo rmats were constructed. For radiation dose reduction, the following was used: automated exposure co ntrol, adjustment of mA and/or kV according to patient size. COMPARISON: None. FINDINGS: Image quality: Excellent. Bones: Grade 1 anterolisthesis of L4 on L5. Mild levoscoliosis the lumbar spine, centered at L4-5. Ve rtebral body heights are well-maintained. Multilevel degenerative disc disease of the lumbar spine, m ost pronounced and moderate at L4-5. Multilevel disc desiccation disc bulge. Central canal stenosis: Moderate at L4-5, secondary to disc bulge, mild bilateral facet arthropathy w ith ligamentum flavum hypertrophy. Right neuroforaminal stenosis: Mild at L4-5. Left neuroforaminal stenosis: Mild at L4-5. Visualized sacrum is intact. Soft tissue findings: Status post cholecystectomy. Renal cyst in the upper pole of the left kidney. I ndeterminant, 9 mm lesion in the anterior upper pole of the left kidney (3:6), new from prior CT abdo men pelvis on 01/24/2022. Patient is likely status post hysterectomy. Sigmoid colon diverticulosis. Mi ld calcification of the abdominal aorta. No abdominal aortic aneurysm. IMPRESSION: 1.Multilevel degenerative changes of the lumbar spine, most pronounced at L4-5, where there is modera te central canal stenosis and mild bilateral neuroforaminal stenosis. 2.No compression fracture of the lumbar spine. 3.9 mm indeterminate lesion in the left kidney, new from 01/24/2022. Underlying carcinoma cannot be ex cluded. Recommend further evaluation with CT or MR renal protocol. Reviewed by: Chichi Hare MD on 04/07/2024 3:02 PM PDT Approved by: Chichi Hare MD on 04/07/2024 3:02 PM PDT Station ID: [id number]
== END 2024-04-07 11:46 | disposition home or self-care (01) ==
LOC: DI 11:45
PROVIDERS: ATTEND Registered Nurse
DX: M81.0 Age-related osteoporosis without current pathological fracture (principal); M47.816 Spondylosis without myelopathy or radiculopathy, lumbar region; M48.061 Spinal stenosis, lumbar region without neurogenic claudication; N28.89 Other specified disorders of kidney and ureter; M51.34 Other intervertebral disc degeneration, thoracic region

== ENCOUNTER 2024-04-22 15:20 | Outpatient (CLI) | payer MEDICARE, OTHER ==
[~2024-04-22 15:20] MED LIST changes: -BUFFERED LIDOCAINE 10 ML SYRINGE ONE; -BUPIVACAINE 0.5%-EPI 1:200000 PF 10 ML VIAL ONE; +GADOTERATE MEGLUMINE 7.5 MMOL/15 ML VIAL ONE
[2024-04-22] MEDS: GADOTERATE MEGLUMINE 7.5 MMOL/15 ML VIAL IVP ONE (18:26)
--- NOTE | 2024-04-23 14:23 | MRI Report ---
PROCEDURE: Abdomen W/WO INDICATIONS: RENAL MASS CONTRAST: Clariscan 14ml TECHNIQUE: Coronal ultra fast SE, axial 2D spoiled GE in- and rch-ro-laxsw; axial breath-hold T2 fast SE. Dynam ic axial ultra fast GE during the administration of contrast; post-contrast coronal ultra fast GE or 2D spoiled GE with fat saturation from the hepatic dome to the iliac crests. Optional diffusion weig hted imaging and ADC may be performed. COMPARISON: CT 04/07/2024 FINDINGS: Image quality: Excellent. Lung bases and heart: Unremarkable. Liver: No solid mass. Gallbladder and biliary tree: Surgically absent. No biliary dilation, accounting for post-cholecystec mak state. Spleen: No splenomegaly. Pancreas: No pancreatic ductal dilation. Adrenals: No adrenal nodule. Kidneys and ureters: No hydronephrosis. No renal cystic lesion which requires follow up. No solid mas s. Multiple T2 hyperintense cystic lesions without suspicious features or enhancement. This includes a 9 mm lesion on the anterior upper pole of the left kidney. Bowel and peritoneum: No bowel distension. No pathologic free fluid. Diverticulosis without evidence of diverticulitis. Lymph nodes: No central or retroperitoneal adenopathy. Vessels: No infrarenal aortic aneurysm. Bones: No aggressive osseous abnormality. Other: No significant ventral hernia. IMPRESSION: Bilateral benign Bosniak 1 and 2 cystic lesions, require no further follow-up. This includes the prev iously documented 9 mm lesion on the anterior margin of the left superior pole. Reviewed by: Jamel Wynn MD on 04/23/2024 2:22 PM PDT Approved by: Jamel Wynn MD on 04/23/2024 2:22 PM PDT Station ID: [id number]
== END 2024-04-22 15:21 | disposition home or self-care (01) ==
LOC: DI 15:20
PROVIDERS: ATTEND Registered Nurse
DX: N28.1 Cyst of kidney, acquired (principal)
CPT/HCPCS: 36415; 82565

== ENCOUNTER 2024-04-22 15:30 | Outpatient (CLI) | payer MEDICARE, OTHER ==
[2024-04-22 16:14] LABS: CREATININE 0.7 mg/dL (0.6-1.3)
== END 2024-04-22 15:31 | disposition home or self-care (01) ==
LOC: LAB 15:30
PROVIDERS: ATTEND Registered Nurse
DX: N28.89 Other specified disorders of kidney and ureter (principal)
CPT/HCPCS: 36415; 82565